=== PATIENT | male | born 1945 | race Caucasian/White ===

== ENCOUNTER 2016-07-04 14:47 | Emergency (ER) | payer OTHER, MEDICARE ==
[~2016-07-04 14:47] MED LIST: ALBUTEROL0.09 MG/A1 INH; ALBUTEROL2.5 MG/3 M INH/SOL; ANTIVERT 12.512.5 MG PO; ANTIVERT12.5 M1 PO; ANTIVERT25 MG PO; CLONAZEPAM0.5 M2 PO; CLONAZEPAM0.5 MG PO; CLONAZEPAM1 M2 PO; FLEXERIL10 MG PO; FLOMAX0.4 M1 PO; FOSAMAX70 M1 PO; GUAIFENESIN ER600 MG PO; LASIX20 M1 PO; LIORESAL 10MG T10 MG PO; MASOPHEN500 MG PO; MEDROL DOSEPAK1 PAC PO; MEDROL4 M2 PO; MUCINEX ER600 MG PO; NAPROSYN375 MG PO; OXYCODONE-ACET1 EAC1 PO; OXYCODONE-ACETAMINOP PO; PEPCID20 MG PO; PERCOCET 10-321 EACH PO; PERCOCET 325 MG1 TA2 PO; PREDNISONE10 M2 PO; PRILOSEC 20MG C20 MG PO; PROAIR HFA8.5 GM INH; PYRIDIUM100 MG PO; REGLAN10 MG PO; ROBITUSSIN COU237 ML PO; SYMBICORT 160/41 PUF INH; SYMBICORT 16010.2 GM INH; TERBINAFINE HY250 MG PO; TESSALON PERLE100 MG PO; TRAMADOL50 MG PO; TRIAMCINOL0.1 %/453 TOP; VITAMIN D250000 UNIT PO; WELLBUTRIN 100100 MG PO; ZANTAC300 MG PO; ZITHROMAX Z-PA250 M1 PO; ZITHROMAX250 M2 PO
--- NOTE | 2016-07-04 15:29 | ED DYSPNEA/ASTHMA COMPLAINT ---
History of Present Illness General Chief Complaint: Dyspnea (COPD, CHF, Other) Stated Complaint: BIBA DIFF BREATHING Source: patient Exam Limitations: no limitations Vital Signs & Intake/Output Vital Signs & Intake/Output Vital Signs Date Time Temp Pulse Resp B/P Pulse O2 O2 Flow FiO2 Ox Delivery Rate 07/04 1455 97 Room Air 07/04 1448 97.9 90 20 179/90 97 Room Air Allergies Coded Allergies: Iodinated Contrast Media - Oral and (IODINATED CONTRAST MEDIA - IV DYE) (MAKES ME SICK FOR DAYS PER PT 06/06/16) hydromorphone (Mild, DIZZINESS AND ITCHINESS 06/06/16) Reconcile Medications Acetaminophen (Masophen) 500 MG TABLET 1 TAB PO PRN PAIN (Reported) Albuterol Sulfate 2.5 MG/3 ML VIAL.NEB 1 Vial INH/CALDERON PRN COPD (Reported) Albuterol Sulfate (Albuterol Sulfate Hfa) 90 MCG HFA.AER.AD 2 PUFF INH Q4-6 PRN PRN SHORTNESS OF BREATH 90 MCG PER PUFF Alendronate Sodium (Fosamax) 70 MG TABLET 1 TAB PO QMON OSTEOPOROSIS ( Reported) in the morning, at least 30 minutes before the first food, beverage, or medication of the day Budesonide/Formoterol Fumarate (Symbicort 160-4.5 Mcg Inhaler) 10.2 GM HFA.AER.AD 2 PUF INH BID COPD/EMPHYSEMA (Reported) Clonazepam 0.5 MG TABLET 2 TAB PO DAILY ANXIETY (Reported) ERGOCALCIFEROL (VITAMIN D2) (Vitamin D2) 50,000 UNIT CAPSULE 50,000 IU PO Q30D VITAMIN D SUPPLEMENT (Reported) Furosemide (Lasix) 20 MG TABLET 1 TAB PO DAILY PRN LEG EDEMA OXYCODONE HCL/ACETAMINOPHEN (Oxycodone-Acetaminophen 10-325) 10 MG-325 MG TABLET 1 TAB PO 4 TIMES/DAY PRN PAIN (Reported) Ranitidine Hydrochloride (Zantac 300) 300 MG TAB 1 TAB PO DAILY ACID REFLUX ( Reported) TAMSULOSIN HCL (Tamsulosin Hydrochloride) 0.4 MG CAP.ER.24H 1 TAB PO DAILY PROSTATE HEALTH (Reported) Triage Note: PT BIBA FROM HOME WITH INCREASED DIFFICULTY BREATHING. PT STATES THAT HE HAS BEEN CONGESTED, STUFFY NOSE, SNEEZING, RUNNY NOSE FOR THE PAST FEW DAYS. STATES PRODUCING WHITE MUCUS. PT STATES THAT HE WENT TO [facility] FOR SAME LAST WEEK AND TOLD HE HAS A STOMACH VIRUS. PT REPORTS STILL NOT FEELING ANY BETTER. RA SAT 97% AT THIS TIME. PT STATES THAT HE HAS PAIN TO HIS RIBS WITH DEEP INSPIRATION. DENIES ANY CP AT THIS TIME. STATES THAT HE HAD TO USE HIS INHALER X3 TODAY. Triage Nurses Notes Reviewed? yes HPI: pt presents for evaluation of difficulty breathing with cough productive of a mild white phlegm that began a few days ago. Patient states that when he coughs he gets a severe sharp central chest pain that resolves when not coughing. He states he's also been blowing his nose almost nonstop since about 12:00 this afternoon. No fever or diaphoresis. Patient states that his roommate is currently ill because he goes hiking all the time. He has chronic left ankle swelling that has not changed recently. There has been no associated weight gain. Patient has a past medical history of pneumonia and he is concerned that he is developing another episode. Past History Travel History Traveled to [place] past 21 day No Medical History Any Pertinent Medical History? 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 No Review of Systems Review of Systems Constitutional: Reports: no symptoms. EENTM: Reports: no symptoms. Respiratory: Reports: see HPI. Cardiovascular: Reports: no symptoms. GI: Reports: no symptoms. Genitourinary: Reports: no symptoms. Musculoskeletal: Reports: no symptoms. Skin: Reports: no symptoms. Neurological/Psychological: Reports: no symptoms. Hematologic/Endocrine: Reports: no symptoms. Immunologic/Allergic: Reports: no symptoms. All Other Systems: Reviewed and Negative Physical Exam Physical Exam Respiratory: see below Comments: Gen.: Well-nourished, well-developed, no acute respiratory distress. Conversant. Head: Normocephalic, atraumatic. Eyes: Normal inspection bilaterally Ears: Normal inspection bilaterally Nose: Normal inspection Throat/mouth : Moist mucosa Neck: Supple, full range of motion, no goiter Heart: Regular rate and rhythm, no murmurs rubs or gallops Lungs: Clear to auscultation bilaterally with normal air entry Chest: Nontender Back: Normal range of motion Abdomen: Soft, nontender, nondistended, normal bowel sounds Extremities: Normal range of motion grossly, equal radial pulses, no cyanosis clubbing or edema Neurologic: Cranial nerves grossly intact, speech is clear Skin: warm and dry Psychiatric: Calm, cooperative, no apparent delusions or hallucinations Core Measures ACS in differential dx? No Severe Sepsis Present: No Septic Shock Present: No Progress Differential Diagnosis: bronchitis, CHF, COPD, pneumonia Plan of Care: Orders Procedure Date/time Status XRY-CHEST XRAY, PA AND LATERAL 07/04 1507 Active Diagnostic Imaging: Discussed w/RAD: Radiology Read. CXR Impression: PATIENT: OG PATEL PRESENT AGE: 71 PATIENT ACCOUNT NO: [id number] : 43 LOCATION: [facility] ORDERING PHYSICIAN: JERRICA GREEN MD SERVICE DATE: 07/04/16 EXAM TYPE: RAD - XRY-CHEST XRAY, PA AND LATERAL EXAMINATION: XR CHEST CLINICAL INFORMATION: Cough, bronchitis COMPARISON: 06/06/2016 chest x-ray TECHNIQUE: PA and lateral views of the chest were obtained. FINDINGS: The cardiac size is normal. The mediastinal silhouette is within normal limits. Tortuous thoracic aorta with atherosclerotic calcifications of aortic arch seen. The pulmonary vascularity is normal. There is linear density at the left lung base, adjacent to the left costophrenic angle which is similar to prior exam, and likely represents atelectatic changes and/or scar. The lungs are otherwise clear. No pleural effusions or pneumothorax. The visualized bony thorax is unremarkable. IMPRESSION: Left lower lobe linear pulmonary opacities, similar to prior exam and could represent scar and /or atelectasis. DICTATED BY: CHAU GRIFFIN MD DATE/TIME DICTATED:07/04/161603 BOX TRUCK WASHER:RJ DATE/TIME TRANSCRIBED:07/04/161603 CONFIDENTIAL, DO NOT COPY WITHOUT APPROPRIATE AUTHORIZATION. <Electronically signed in Other Vendor System> SIGNED BY: CHAU GRIFFIN MD 07/04/16 1611 Initial ED EKG: none Comments: 07/04/2016 4:27:39 PM I have updated the area on his test results. In addition to the pneumonia he is extremely concerned as to why he suddenly lost all of his teeth. He states he will be seeing a dentist shortly in order to pull out all his teeth and that he will be going for denture fitting. Patient's dentition is extremely poor but there seems to be no acute dental emergency present at this time. Departure Departure Disposition: HOME OR SELF CARE Condition: Stable Clinical Impression Primary Impression: Emphysema of lung Qualifiers: Emphysema type: unspecified Qualified Code: J43.9 - Emphysema, unspecified Secondary Impressions: Periodontal disease Referrals: GOLD SMITH MD (PCP/Family) Additional Instructions: Continue your current medications. Follow-up with your primary care doctor for reevaluation this week. Follow through with your dental visits as scheduled. Return if any concerns or sudden worsening. Departure Forms: Customer Survey General Discharge Information Critical Care Note Critical Care Note Critical Care Time: non-applicable
--- NOTE | 2016-07-04 16:11 | RADIOLOGY REPORT ---
EXAMINATION: XR CHEST CLINICAL INFORMATION: Cough, bronchitis COMPARISON: 06/06/2016 chest x-ray TECHNIQUE: PA and lateral views of the chest were obtained. FINDINGS: The cardiac size is normal. The mediastinal silhouette is within normal limits. Tortuous thoracic aorta with atherosclerotic calcifications of aortic arch seen. The pulmonary vascularity is normal. There is linear density at the left lung base, adjacent to the left costophrenic angle which is similar to prior exam, and likely represents atelectatic changes and/or scar. The lungs are otherwise clear. No pleural effusions or pneumothorax. The visualized bony thorax is unremarkable. IMPRESSION: Left lower lobe linear pulmonary opacities, similar to prior exam and could represent scar and /or atelectasis.
[2016-07-04 16:50] VITALS: BP 133/92
== END 2016-07-04 16:50 ==
LOC: ERH 14:47
DX: J43.9 Emphysema, unspecified (principal); K05.6 Periodontal disease, unspecified; Z87.891 Personal history of nicotine dependence

== ENCOUNTER 2016-08-31 11:00 | Emergency (ER) | payer OTHER, MEDICARE ==
[~2016-08-31] VITALS: Ht 174 cm; Wt 76.2 kg
[2016-08-31 11:13] VITALS: BP 180/105
--- NOTE | 2016-08-31 11:14 | ED DYSPNEA/ASTHMA COMPLAINT ---
History of Present Illness General Chief Complaint: General Adult Stated Complaint: WEAKNESS Source: patient Exam Limitations: no limitations Vital Signs & Intake/Output Vital Signs & Intake/Output Vital Signs Date Time Temp Pulse Resp B/P Pulse O2 O2 Flow FiO2 Ox Delivery Rate 08/31 1145 94 08/31 1113 97.2 78 18 180/105 96 Allergies Coded Allergies: Iodinated Contrast Media - Oral and (IODINATED CONTRAST MEDIA - IV DYE) (MAKES ME SICK FOR DAYS PER PT 06/06/16) hydromorphone (Mild, DIZZINESS AND ITCHINESS 06/06/16) Reconcile Medications Acetaminophen (Masophen) 500 MG TABLET 1 TAB PO PRN PAIN (Reported) Albuterol Sulfate 2.5 MG/3 ML VIAL.NEB 1 Vial INH/CALDERON PRN COPD (Reported) Albuterol Sulfate (Albuterol Sulfate Hfa) 90 MCG HFA.AER.AD 2 PUFF INH Q4-6 PRN PRN SHORTNESS OF BREATH 90 MCG PER PUFF Alendronate Sodium (Fosamax) 70 MG TABLET 1 TAB PO QMON OSTEOPOROSIS ( Reported) in the morning, at least 30 minutes before the first food, beverage, or medication of the day Budesonide/Formoterol Fumarate (Symbicort 160-4.5 Mcg Inhaler) 10.2 GM HFA.AER.AD 2 PUF INH BID COPD/EMPHYSEMA (Reported) Clonazepam 0.5 MG TABLET 2 TAB PO DAILY ANXIETY (Reported) ERGOCALCIFEROL (VITAMIN D2) (Vitamin D2) 50,000 UNIT CAPSULE 50,000 IU PO Q30D VITAMIN D SUPPLEMENT (Reported) OXYCODONE HCL/ACETAMINOPHEN (Oxycodone-Acetaminophen 10-325) 10 MG-325 MG TABLET 1 TAB PO 4 TIMES/DAY PRN PAIN (Reported) Ranitidine Hydrochloride (Zantac 300) 300 MG TAB 1 TAB PO DAILY ACID REFLUX ( Reported) TAMSULOSIN HCL (Tamsulosin Hydrochloride) 0.4 MG CAP.ER.24H 1 TAB PO DAILY PROSTATE HEALTH (Reported) Triage Nurses Notes Reviewed? yes Onset: Gradual Duration: constant Timing: remote history Severity: moderate Prior Episodes/Possible Cause: chronic episodes HPI: Patient is a 71-year-old male with a past medical history of COPD former smoker who presents emergency room brought in by ambulance for concerns of persistent shortness of breath unrelieved with multiple episodes of inhaler treatments at home and persistent body shaking episodes. Patient denies any fevers chills, COUGH,chest pain and arm pain jaw pain nausea vomiting hemoptysis leg swelling Patient has been evaluated at [facility] emergency room on multiple occasions for similar symptoms (GUILLERMO HARTMAN) Past History Medical History Any Pertinent Medical History? 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 No (GUILLERMO HARTMAN) Review of Systems Review of Systems Constitutional: Reports: no symptoms. EENTM: Reports: no symptoms. Respiratory: Reports: see HPI, cough, short of breath. Cardiovascular: Reports: no symptoms. GI: Reports: no symptoms. Genitourinary: Reports: no symptoms. Musculoskeletal: Reports: no symptoms. Skin: Reports: no symptoms. Neurological/Psychological: Reports: no symptoms. Hematologic/Endocrine: Reports: no symptoms. Immunologic/Allergic: Reports: no symptoms. All Other Systems: Reviewed and Negative (GUILLERMO HARTMAN) Physical Exam Physical Exam General Appearance: no apparent distress, alert, comfortable Respiratory: normal breath sounds, chest non-tender, no respiratory distress Comments: Well-developed well-nourished person in no acute distress HEENT: Normal EENT exam, extraocular motion intact, no nystagmus. Pupils equally round and reactive to light and accommodation. Nose is atraumatic. External auditory canal and Tympanic membranes clear. Pharynx normal. No swelling or edema. Neck: Supple, no lymphadenopathy, normal range of motion without pain or tenderness Back: Nontender, no CVA tenderness. Cardiovascular: Regular rate and rhythms no murmurs rubs or gallops, normal JVP Respiratory: Chest nontender. No respiratory distress.breath sounds clear to auscultation bilaterally Abdomen: Soft, nontender nondistended, no appreciable organomegaly. Normal bowel sounds. No ascites Extremity: No edema, no calf tenderness to palpation, normal and equal pulses. Neuro: Alert oriented x3, motor sensory normal, Skin: No appreciable rash on exposed skin, skin is warm and dry. Psych: Mood and affect is normal, memory and judgment is normal. Core Measures ACS in differential dx? Yes Severe Sepsis Present: No Septic Shock Present: No (GUILLERMO HARTMAN) Progress Differential Diagnosis: asthma, AMI, bronchitis, costochondritis, CHF, COPD, musculoskeletal pain, pericarditis, pulmonary embolism, pneumonia, pneumothorax, unstable angina Plan of Care: Orders Procedure Date/time Status TROPONIN LEVEL 08/31 1108 Complete COMPREHENSIVE METABOLIC PANEL 08/31 1108 Complete CBC WITHOUT DIFFERENTIAL 08/31 1108 Complete Laboratory Tests 08/31/16 1122: Anion Gap 10, Estimated GFR > 60, BUN/Creatinine Ratio 10.0, Glucose 93, Calcium 10.0, Total Bilirubin 1.0, AST 22, ALT 29, Alkaline Phosphatase 68, Troponin I < 0.01, Total Protein 6.8, Albumin 3.9, Globulin 2.9, Albumin/Globulin Ratio 1.3, CBC w Diff NO MAN DIFF REQ, RBC 5.06, MCV 89.9, MCH 29.4, RDW 13.8, MPV 9.0, Gran % 66.4, Lymphocytes % 23.4, Monocytes % 7.8, Eosinophils % 2.1, Basophils % 0.3, Absolute Granulocytes 4.4, Absolute Lymphocytes 1.6, Absolute Monocytes 0.5 , Absolute Eosinophils 0.1, Absolute Basophils 0, PUBS MCHC 32.7 L Patient currently looks well no apparent distress clear lungs auscultation 95% room air My suspicion of pulmonary embolism is low Patient denies any chest pain Respiratory therapist provided patient with nebulizer treatment and states that lungs were clear Patient currently resting comfortably eating a meal Patient does state that he has not been eating much over the past few days. I strongly encouraged patient to begin eating a well healthy balanced diet Upon discharge patient looks well no apparent distress and will comply with discharge instructions and had no questions (GUILLERMO HARTMAN) Diagnostic Imaging: Viewed by Me: Radiology Read. CXR Impression: no acute abnormality, no infiltrates Initial ED EKG: none Comments: PATIENT: OG PATEL PRESENT AGE: 71 PATIENT ACCOUNT NO: [id number] : 43 LOCATION: [facility] ORDERING PHYSICIAN: GUILLERMO DELANEY SERVICE DATE: 08/31/16-2718 EXAM TYPE: RAD - XRY-PORTABLE CHEST XRAY EXAMINATION: CHEST 1 VIEW CLINICAL INFORMATION: Shortness of breath. COMPARISON: 07/04/2016. TECHNIQUE: An AP view of the chest is provided. FINDINGS: The cardiac silhouette is not enlarged. The mediastinal and hilar contours are unremarkable. There are neither pleural effusions nor pneumothoraces. There are no consolidations. The osseous structures are unremarkable. IMPRESSION: No evidence for acute disease. (GUILLERMO HARTMAN) Departure Departure Disposition: HOME OR SELF CARE Condition: Stable Clinical Impression Primary Impression: Shortness of breath Secondary Impressions: COPD (chronic obstructive pulmonary disease) Referrals: GOLD SMITH MD (PCP/Family) Additional Instructions: As discussed continue home medications as directed. Follow-up with your, care doctor if no better in 2 days. If symptoms worsen return to emergency room. Begin eating and drinking a well healthy balanced diet and plenty of water for hydration Departure Forms: Customer Survey General Discharge Information (GUILLERMO HARTMAN) PA/LOGISTICS TECH Co-Sign Statement Statement: ED Attending supervision documentation- x I saw and evaluated the patient. I have also reviewed all the pertinent lab results and diagnostic results. I agree with the findings and the plan of care as documented in the PA's/LOGISTICS TECH's documentation. [] I have reviewed the ED Record and agree with the PA's/LOGISTICS TECH's documentation. [] Additions or exceptions (if any) to the PAs/LOGISTICS TECH's note and plan are summarized below: [] (ELLEN CHAPPELL,RYAN) Critical Care Note Critical Care Note Critical Care Time: non-applicable (GUILLERMO HARTMAN)
--- NOTE | 2016-08-31 11:41 | RADIOLOGY REPORT ---
EXAMINATION: CHEST 1 VIEW CLINICAL INFORMATION: Shortness of breath. COMPARISON: 07/04/2016. TECHNIQUE: An AP view of the chest is provided. FINDINGS: The cardiac silhouette is not enlarged. The mediastinal and hilar contours are unremarkable. There are neither pleural effusions nor pneumothoraces. There are no consolidations. The osseous structures are unremarkable. IMPRESSION: No evidence for acute disease.
[2016-08-31 11:50] LABS: ABSOLUTE BASOPHIL COUNT 0 /CUMM (0.0-0.2); ABSOLUTE EOSINOPHIL COUNT 0.1 /CUMM (0.0-0.7); ABSOLUTE GRANULOCYTE CT 4.4 /CUMM (1.4-6.5); ABSOLUTE LYMPH COUNT 1.6 /CUMM (1.2-3.4); ABSOLUTE MONOCYTE COUNT 0.5 /CUMM (0.10-0.60); BASOPHIL % 0.3 % (0.0-2.0); EOSINOPHIL % 2.1 % (0-5); GRANULOCYTE % 66.4 % (42.2-75.2); HEMATOCRIT 45.5 % (42-52); MEAN CORPUSCULAR HGB 29.4 PG (27.0-31.0); MEAN CORPUSCULAR HGB CONC 32.7 G/DL (33.0-37.0); MEAN CORPUSCULAR VOLUME 89.9 FL (80.0-94.0); PLATELET COUNT 219 /CUMM (130-400); RBC DISTRIBUTION WIDTH 13.8 % (11.5-14.5); RED BLOOD CELL CT 5.06 /CUMM (4.70-6.10); WHITE BLOOD CELL COUNT 6.6 /CUMM (4.8-10.8)
== END 2016-08-31 12:31 ==
LOC: ERH 11:00
PROVIDERS: Physician Assistant
DX: J44.9 Chronic obstructive pulmonary disease, unspecified (principal); Z87.891 Personal history of nicotine dependence
CPT/HCPCS: 1263

== ENCOUNTER 2016-09-20 12:28 | Emergency (ER) | payer OTHER, MEDICARE ==
[~2016-09-20] VITALS: Ht 172.7 cm; Wt 65.3 kg
[2016-09-20] MEDS ORDERED: VENTOLIN HFA18 GM INH (14:09)
[2016-09-20] MEDS ORDERED: AMOX-CLAV 875-1 EACH PO (14:14)
--- NOTE | 2016-09-20 14:34 | ED DYSPNEA/ASTHMA COMPLAINT ---
History of Present Illness General Chief Complaint: Sore Throat, Dental Pain Stated Complaint: TEETH PULLED 09/17,JAW/BODY PAIN,UNABLE TO SLEEP Source: patient Exam Limitations: no limitations Vital Signs & Intake/Output Vital Signs & Intake/Output Vital Signs Date Time Temp Pulse Resp B/P Pulse O2 O2 Flow FiO2 Ox Delivery Rate 09/20 1618 98.6 87 18 167/92 94 Room Air 09/20 1242 98.6 72 18 171/90 94 Room Air Allergies Coded Allergies: Iodinated Contrast Media - Oral and (IODINATED CONTRAST MEDIA - IV DYE) (MAKES ME SICK FOR DAYS PER PT 06/06/16) hydromorphone (Mild, DIZZINESS AND ITCHINESS 06/06/16) Reconcile Medications Acetaminophen (Masophen) 500 MG TABLET 1 TAB PO PRN PAIN (Reported) Albuterol Sulfate 2.5 MG/3 ML VIAL.NEB 1 Vial INH/CALDERON PRN COPD (Reported) Albuterol Sulfate (Ventolin Hfa) 90 MCG HFA.AER.AD 2 PUF INH Q4-6 PRN PRN SHORTNESS OF BREATH (Reported) Amoxicillin/Clavulanate Potass (Amox-Clav 875-125 MG Tablet) 875 MG-125 MG TABLET 1 TAB PO BID ANTIBIOTIC, INFECTION (Reported) Budesonide/Formoterol Fumarate (Symbicort 160-4.5 Mcg Inhaler) 10.2 GM HFA.AER.AD 2 PUF INH BID COPD/EMPHYSEMA (Reported) Clonazepam 0.5 MG TABLET 2 TAB PO DAILY ANXIETY (Reported) Oxycodone HCl/Acetaminophen (Oxycodone-Acetaminophen 10-325) 10 MG-325 MG TABLET 1 TAB PO 4XDP PRN PAIN (Reported) Ranitidine HCl (Zantac) 300 MG TABLET 1 TAB PO DAILY ACID REFLUX (Reported) Tamsulosin HCl (Flomax) 0.4 MG CAP.ER.24H 1 CAP PO DAILY PROSTATE (Reported) Triage Note: PT HAD LAST OF TEETH PULLED OUT ON TUESDAY. PT STATES PAIN IN JAW IS NOT RELIEVED WITH PERCOCET, LAST TOOK AT 11 AM. Triage Nurses Notes Reviewed? yes HPI: This patient is a 71-year-old male who presented to the emergency department today for evaluation of multiple complaints. The patient reported that on 09/17 he had his teeth pulled. He reported that he has pulled out 2 of the sutures that were placed in his gingiva. He reported that there is a suture tail that is bothering him and would like it to be cut out. The patient also is complaining of pain to the left side of his face status post dental surgery. He reported that Percocet is not helping him and he would like something stronger. He reported that the pain is a 10 out of 10, throbbing, and nonradiating. The patient also reported that it is difficult for him to lay down at night as it causes him to feel short of breath. The patient has been sitting up in a chair. He reported lower extremity edema which resolved with elevation. No known history of CHF. He is not taking any diuretics. This patient does not have a software sales representative. The patient denied any chest pain, difficulty breathing currently , fevers, chills, abdominal pain, nausea, or vomiting. No numbness or tingling in his extremities. No visual changes. (KULDEEP DILLARD PA-C) Past History Travel History Traveled to [place] past 21 day No Medical History Any Pertinent Medical History? 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 No (KULDEPE DILLARD PA-C) Review of Systems Review of Systems Constitutional: Reports: no symptoms. EENTM: Reports: see HPI. Respiratory: Reports: see HPI. Cardiovascular: Reports: see HPI. GI: Reports: no symptoms. Genitourinary: Reports: no symptoms. Musculoskeletal: Reports: no symptoms. Skin: Reports: no symptoms. Neurological/Psychological: Reports: no symptoms. All Other Systems: Reviewed and Negative (KULDEEP DILLARD PA-C) Physical Exam Physical Exam Respiratory: normal breath sounds, chest non-tender, no respiratory distress, no wheezes, rales, or rhonchi Comments: Well-developed well-nourished person in no acute distress HEENT: Normal EENT exam, head normocephalic, moist mucous membranes, sutures in place to the gingiva with no gingival edema or erythema Pupils equally round and reactive to light. No pharyngeal injection. No oral pharyngeal lesions or edema Neck: Supple, no lymphadenopathy Back: Normal gait Cardiovascular: Regular rate and rhythm with no murmurs, rubs, or gallops Abdomen: Soft, nontender, and nondistended Extremity: No edema, no calf tenderness to palpation, normal and equal pulses. Neuro: Alert oriented x3, cranial nerves II through XII grossly intact. Skin: No appreciable rash on exposed skin, skin is warm and dry. Psych: Mood and affect is normal Core Measures ACS in differential dx? Yes Severe Sepsis Present: No Septic Shock Present: No (KULDEEP DILLARD PA-C) Progress Differential Diagnosis: asthma, AMI, bronchitis, costochondritis, CHF, COPD, musculoskeletal pain, pericarditis, pulmonary embolism, pneumonia, unstable angina Plan of Care: Orders Procedure Date/time Status TROPONIN LEVEL 09/21 1427 Complete MAGNESIUM 09/20 142 Complete COMPREHENSIVE METABOLIC PANEL 09/20 142 Complete CBC WITHOUT DIFFERENTIAL 09/21 1427 Complete B-TYPE NATRIURETIC PEP (BNP) 09/20 142 Complete EKG 09/20 142 Active Laboratory Tests 09/20/16 1507: Anion Gap 6, Estimated GFR > 60, BUN/Creatinine Ratio 11.0, Glucose 81, Calcium 10.0, Magnesium 1.7, Total Bilirubin 0.8, AST 24, ALT 37, Alkaline Phosphatase 71, Troponin I < 0.01, Dhn-M-Dczsjdojzqc Pept 216 H, Total Protein 7.3, Albumin 4.2, Globulin 3.1, Albumin/Globulin Ratio 1.4, CBC w Diff NO MAN DIFF REQ, RBC 5.00, MCV 89.2, MCH 29.6, RDW 13.6, MPV 9.1, Gran % 71.4, Lymphocytes % 19.1 L, Monocytes % 7.4, Eosinophils % 1.8, Basophils % 0.3, Absolute Granulocytes 5.5, Absolute Lymphocytes 1.5, Absolute Monocytes 0.6, Absolute Eosinophils 0.1, Absolute Basophils 0, PUBS MCHC 33.1 Diagnostic Imaging: Viewed by Me: Radiology Read. Discussed w/RAD: Radiology Read. CXR Impression: PATIENT: OG PATEL PRESENT AGE: 71 PATIENT ACCOUNT NO: [id number] : 43 LOCATION: [facility] ORDERING PHYSICIAN: KULDEEP DILLARD PA-C SERVICE DATE: 09/20/16 EXAM TYPE: RAD - XRY-CHEST XRAY, PA AND LATERAL EXAMINATION: XR CHEST CLINICAL INFORMATION: Shortness of breath and chest pain. Evaluate for cardiomegaly. COMPARISON: Chest x-ray 2016. Chest x-ray 07/04/2016. TECHNIQUE: 2 views of the chest were obtained. FINDINGS: The lungs are hyperinflated without focal airspace consolidation. There is minimal scarring versus atelectasis within the bilateral lung bases. No pleural effusions or pneumothoraces are identified. Cardiomediastinal contours are within normal limits. Soft tissues are unremarkable. No acute osseous abnormality is identified. IMPRESSION: Pulmonary hyperinflation, which can be seen in the setting of underlying COPD. Otherwise, no acute pulmonary process. Cardiomediastinal contours are within normal limits. DICTATED BY: WALTER BYERS MD DATE/TIME DICTATED:09/20/161502 QA AUDITOR:RJ DATE/TIME TRANSCRIBED:09/20/161502 CONFIDENTIAL, DO NOT COPY WITHOUT APPROPRIATE AUTHORIZATION. <Electronically signed in Other Vendor System> SIGNED BY: WALTER BYERS MD 09/20/16 1509 Initial ED EKG: normal axis, normal intervals, normal sinus rhythm, no ST T wave changes, 65 bpm Comments: 09/20/2016 3:58:49 PM: No increase in troponin level. BNP not elevated. Chest x- ray unremarkable. The patient is resting comfortably on the stretcher. Stable for discharge home. He will follow up with his software sales representative as discussed as well as with his dentist. (NISHANT ROE,KULDEEP) Departure Departure Disposition: HOME OR SELF CARE Condition: Stable Clinical Impression Primary Impression: Pain, dental Referrals: GOLD SMITH MD (PCP/Family) Additional Instructions: Please follow-up with your software sales representative, Dr. Corcoran, as discussed. Please follow-up with your dentist as discussed. Rest and return for any worsening symptoms or concerns. Departure Forms: Customer Survey General Discharge Information (KULDEEP DILLARD PA-C) PA/INSTRUMENT PROCESSING TECH Co-Sign Statement Statement: ED Attending supervision documentation- [X] I saw and evaluated the patient. I have also reviewed all the pertinent lab results and diagnostic results. I agree with the findings and the plan of care as documented in the PA's/INSTRUMENT PROCESSING TECH's documentation. [] I have reviewed the ED Record and agree with the PA's/INSTRUMENT PROCESSING TECH's documentation. [] Additions or exceptions (if any) to the PAs/INSTRUMENT PROCESSING TECH's note and plan are summarized below: [] (JERRICA KENDRICK DO) Critical Care Note Critical Care Note Critical Care Time: non-applicable (NISHANT ROE,KULDEEP)
--- NOTE | 2016-09-20 15:09 | RADIOLOGY REPORT ---
EXAMINATION: XR CHEST CLINICAL INFORMATION: Shortness of breath and chest pain. Evaluate for cardiomegaly. COMPARISON: Chest x-ray 08/31/2016. Chest x-ray 07/04/2016. TECHNIQUE: 2 views of the chest were obtained. FINDINGS: The lungs are hyperinflated without focal airspace consolidation. There is minimal scarring versus atelectasis within the bilateral lung bases. No pleural effusions or pneumothoraces are identified. Cardiomediastinal contours are within normal limits. Soft tissues are unremarkable. No acute osseous abnormality is identified. IMPRESSION: Pulmonary hyperinflation, which can be seen in the setting of underlying COPD. Otherwise, no acute pulmonary process. Cardiomediastinal contours are within normal limits.
[2016-09-20 15:20] LABS: ABSOLUTE BASOPHIL COUNT 0 /CUMM (0.0-0.2); ABSOLUTE EOSINOPHIL COUNT 0.1 /CUMM (0.0-0.7); ABSOLUTE GRANULOCYTE CT 5.5 /CUMM (1.4-6.5); ABSOLUTE LYMPH COUNT 1.5 /CUMM (1.2-3.4); ABSOLUTE MONOCYTE COUNT 0.6 /CUMM (0.10-0.60); BASOPHIL % 0.3 % (0.0-2.0); EOSINOPHIL % 1.8 % (0-5); GRANULOCYTE % 71.4 % (42.2-75.2); HEMATOCRIT 44.6 % (42-52); MEAN CORPUSCULAR HGB 29.6 PG (27.0-31.0); MEAN CORPUSCULAR HGB CONC 33.1 G/DL (33.0-37.0); MEAN CORPUSCULAR VOLUME 89.2 FL (80.0-94.0); MEAN PLATELET VOLUME 9.1 FL (7.4-10.4); PLATELET COUNT 227 /CUMM (130-400); RBC DISTRIBUTION WIDTH 13.6 % (11.5-14.5); WHITE BLOOD CELL COUNT 7.8 /CUMM (4.8-10.8)
[2016-09-20 16:18] VITALS: BP 167/92
== END 2016-09-20 16:26 ==
LOC: ERH 12:28
PROVIDERS: Physician Assistant
DX: K08.89 Other specified disorders of teeth and supporting structures (principal); I10 Essential (primary) hypertension; Z72.0 Tobacco use
CPT/HCPCS: 93005; 93010

== ENCOUNTER 2016-10-10 08:12 | Emergency (ER) | payer OTHER, MEDICARE ==
[~2016-10-10] VITALS: Ht 174 cm; Wt 65.3 kg
[~2016-10-10 08:12] MED LIST changes: +AMOX-CLAV 875-1 EACH PO; +VENTOLIN HFA18 GM INH
--- NOTE | 2016-10-10 08:38 | ED DYSPNEA/ASTHMA COMPLAINT ---
History of Present Illness General Chief Complaint: Dyspnea (COPD, CHF, Other) Stated Complaint: BIBA, SOB Source: patient Exam Limitations: no limitations Vital Signs & Intake/Output Vital Signs & Intake/Output Vital Signs Date Time Temp Pulse Resp B/P B/P Pulse O2 O2 Flow FiO2 Mean Ox Delivery Rate 10/10 0820 97.0 66 20 170/81 98 Room Air Allergies Coded Allergies: Iodinated Contrast Media - Oral and (IODINATED CONTRAST MEDIA - IV DYE) (MAKES ME SICK FOR DAYS PER PT 10/10/16) hydromorphone (Mild, DIZZINESS AND ITCHINESS 10/10/16) Reconcile Medications Acetaminophen (Masophen) 500 MG TABLET 1 TAB PO PRN PAIN (Reported) Albuterol Sulfate 2.5 MG/3 ML VIAL.NEB 1 Vial INH/CALDERON PRN COPD (Reported) Albuterol Sulfate (Ventolin Hfa) 90 MCG HFA.AER.AD 2 PUF INH Q4-6 PRN PRN SHORTNESS OF BREATH (Reported) Budesonide/Formoterol Fumarate (Symbicort 160-4.5 Mcg Inhaler) 10.2 GM HFA.AER.AD 2 PUF INH BID COPD/EMPHYSEMA (Reported) Clonazepam 0.5 MG TABLET 2 TAB PO DAILY ANXIETY (Reported) Oxycodone HCl/Acetaminophen (Oxycodone-Acetaminophen 10-325) 10 MG-325 MG TABLET 1 TAB PO 4XDP PRN PAIN (Reported) Ranitidine HCl (Zantac) 300 MG TABLET 1 TAB PO DAILY ACID REFLUX (Reported) Tamsulosin HCl (Flomax) 0.4 MG CAP.ER.24H 1 CAP PO DAILY PROSTATE (Reported) Triage Note: PT BIBA FROM HOME TO [facility] RM 2 C/C DIFF BREATHING X COUPLE HOURS. PT STATES R/T HIS [employer] HAVING SHUT THE HEAT OFF 5 DAYS AGO. STATES HAS BEEN USING HIS INHALERS BUT "THEY'RE NOT WORKING THE WAY THEY'RE SUPPOSED TO". R/A SATS 98%, SPEAKING IN COMPLETE SENTENCES, NO RESPIRATORY DISTRESS NOTED. COMPLAINS ALSO OF CHRONIC INTERMITTENT C/P X YEARS, CURRENTLY RATES SAME 09/27. EKG BEING DONE AT PRESENT. DR GREEN INTO EVALUATE PATIENT ON ARRIVAL TO ER. Triage Nurses Notes Reviewed? yes Onset: Gradual Duration: hour(s):, continues in ED, intermittent Severity: moderate Activities at Onset: rest Prior Episodes/Possible Cause: frequent episodes Modifying Factors: Worsens With: other (with exertion). HPI: Patient presents for evaluation of moderate to severe intermittent shortness of breath that began gradually overnight. Patient has been taking his metered-dose inhaler without improvement. Although he denies fever he states he has felt chilled (his landlord shut his heat off 5 days ago) along with sneezing and nasal congestion. Patient states is also having a left-sided intermittent aching chest pain daily. The pain worsens with deep inspiration. Patient denies cough. He denies leg swelling. He denies cigarette smoking, having quit "a long time ago". In addition he is also experiencing a headache in the back of the head that he has experienced off and on since he fell 2 months ago. Past History Travel History Traveled to [place] past 21 day No Medical History Any Pertinent Medical History? 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 No Review of Systems Review of Systems Constitutional: Reports: no symptoms. EENTM: Reports: no symptoms. Respiratory: Reports: see HPI. Cardiovascular: Reports: no symptoms. GI: Reports: no symptoms. Genitourinary: Reports: no symptoms. Musculoskeletal: Reports: no symptoms. Skin: Reports: no symptoms. Neurological/Psychological: Reports: headache. Hematologic/Endocrine: Reports: no symptoms. Immunologic/Allergic: Reports: no symptoms. All Other Systems: Reviewed and Negative Physical Exam Physical Exam Respiratory: see below Comments: Gen.: Well-nourished, well-developed, no apparent respiratory distress. Conversant. Head: Normocephalic, atraumatic. Eyes: Normal inspection bilaterally Ears: Normal inspection bilaterally Nose: Normal inspection Throat/mouth : Moist mucosa Neck: Supple, full range of motion, no goiter Heart: Regular rate and rhythm, no murmurs rubs or gallops Lungs: Diminished breath sounds bilaterally but otherwise fair to good air entry and no wheezes rales or rhonchi Chest: Nontender Back: Normal range of motion Abdomen: Soft, nontender, nondistended, normal bowel sounds Extremities: Normal range of motion grossly, equal radial pulses, no cyanosis clubbing or edema, calves nontender Neurologic: Cranial nerves grossly intact, speech is clear Skin: warm and dry Psychiatric: Calm, cooperative, no apparent delusions or hallucinations Core Measures ACS in differential dx? No Severe Sepsis Present: No Septic Shock Present: No Progress Differential Diagnosis: bronchitis, CHF, COPD, pneumonia, pneumothorax Plan of Care: Orders Procedure Date/time Status AEROSOL (GEN) 10/10 0900 Complete EKG 10/10 0814 Active Initial ED EKG: NSR, rate (68) Prior EKG: unchanged Comments: 10/10/2016 9:55:49 AM Andrea appears more comfortable and he is quite conversant at this time. Auscultation of the lungs reveals improved air entry and no wheezes rales or rhonchi. He subsequently ambulated to the bathroom without difficulty. He has an albuterol and Symbicort inhaler as well as be adequate for treatment of his lung disease. I feel he is stable for outpatient management, I do not feel he needs oral steroids or antibiotics at this time. Departure Departure Disposition: HOME OR SELF CARE Condition: Stable Clinical Impression Primary Impression: COPD (chronic obstructive pulmonary disease) Qualifiers: COPD type: COPD with acute exacerbation Qualified Code: J44.1 - Chronic obstructive pulmonary disease with (acute) exacerbation Referrals: GOLD SMITH MD (PCP/Family) Additional Instructions: Continue your inhalers as discussed. Follow up with your primary care physician within 48 hours for reevaluation. Return if any concerns or sudden worsening. Departure Forms: Customer Survey General Discharge Information Critical Care Note Critical Care Note Critical Care Time: non-applicable
[2016-10-10 10:10] VITALS: BP 153/85
== END 2016-10-10 10:11 ==
LOC: ERH 08:12
DX: J44.9 Chronic obstructive pulmonary disease, unspecified (principal); Z87.891 Personal history of nicotine dependence; R51 Headache
CPT/HCPCS: 1263; 93005; 93010; J1885

== ENCOUNTER 2016-10-12 09:17 | Emergency (ER) | payer OTHER, MEDICARE ==
[~2016-10-12] VITALS: Ht 174 cm; Wt 65.3 kg
--- NOTE | 2016-10-12 10:58 | ED DYSPNEA/ASTHMA COMPLAINT ---
History of Present Illness General Chief Complaint: Upper Respiratory Sx/Fever Stated Complaint: C/O COUGH SEEN FOR SAME SAT Source: patient, old records Exam Limitations: no limitations Vital Signs & Intake/Output Vital Signs & Intake/Output Vital Signs Date Time Temp Pulse Resp B/P B/P Pulse O2 O2 Flow FiO2 Mean Ox Delivery Rate 10/12 1130 95 10/12 0926 99.0 67 18 164/90 96 Room Air Allergies Coded Allergies: Iodinated Contrast Media - Oral and (IODINATED CONTRAST MEDIA - IV DYE) (MAKES ME SICK FOR DAYS PER PT 10/10/16) hydromorphone (Mild, DIZZINESS AND ITCHINESS 10/10/16) Reconcile Medications Acetaminophen (Masophen) 500 MG TABLET 1 TAB PO PRN PAIN (Reported) Albuterol Sulfate 2.5 MG/3 ML VIAL.NEB 1 Vial INH/CALDERON PRN COPD (Reported) Albuterol Sulfate (Ventolin Hfa) 90 MCG HFA.AER.AD 2 PUF INH Q4-6 PRN PRN SHORTNESS OF BREATH (Reported) Budesonide/Formoterol Fumarate (Symbicort 160-4.5 Mcg Inhaler) 10.2 GM HFA.AER.AD 2 PUF INH BID COPD/EMPHYSEMA (Reported) Clonazepam 0.5 MG TABLET 2 TAB PO DAILY ANXIETY (Reported) Oxycodone HCl/Acetaminophen (Oxycodone-Acetaminophen 10-325) 10 MG-325 MG TABLET 1 TAB PO 4XDP PRN PAIN (Reported) Prednisone 20 MG TABLET 3 TAB PO DAILY ASTHMA Ranitidine HCl (Zantac) 300 MG TABLET 1 TAB PO DAILY ACID REFLUX (Reported) Tamsulosin HCl (Flomax) 0.4 MG CAP.ER.24H 1 CAP PO DAILY PROSTATE (Reported) Triage Note: PT STATES HE CAN'T BREATH AND SHAKING "TO THE MAX" PT STATES UPSET WITH [employer] FOR NOT DROPPING OFF A HEATER THAT IS NOT BIG ENOUGH TO HEAT HIS APPARTMENT. Triage Nurses Notes Reviewed? yes HPI: Patient presents for evaluation of dyspnea that began over the weekend. He was evaluated on Tuesday and the [facility] emergency department and treated with a nebulizer. Today he states his breathing has gotten worse again along with a nonproductive cough. He states that this is certainly due to the fact that his landlord has turned his heat off. He has now contacted a court professional services manager regarding this. He denies fever or cold symptoms or leg swelling. He states that he can't lie flat because it affects his breathing. He has been taking his metered dose inhalers without improvement. Past History Travel History Traveled to [place] past 21 day No Medical History Any Pertinent Medical History? 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 No Review of Systems Review of Systems Constitutional: Reports: no symptoms. EENTM: Reports: no symptoms. Respiratory: Reports: see HPI. Cardiovascular: Reports: no symptoms. GI: Reports: no symptoms. Genitourinary: Reports: no symptoms. Musculoskeletal: Reports: no symptoms. Skin: Reports: no symptoms. Neurological/Psychological: Reports: no symptoms. Hematologic/Endocrine: Reports: no symptoms. Immunologic/Allergic: Reports: no symptoms. All Other Systems: Reviewed and Negative Physical Exam Physical Exam Respiratory: SEE BELOW Comments: Gen.: Well-nourished, well-developed, no acute respiratory distress. Conversant and cooperative. Head: Normocephalic, atraumatic. Eyes: Normal inspection bilaterally Ears: Normal inspection bilaterally Nose: Normal inspection Throat/mouth : Moist mucosa Neck: Supple, full range of motion, no goiter Heart: Regular rate and rhythm, no murmurs rubs or gallops Lungs: Diminished breath sounds bilaterally without wheezes rales or rhonchi. Chest: Nontender Back: Normal range of motion Abdomen: Soft, nontender, nondistended, normal bowel sounds Extremities: Normal range of motion grossly, equal radial pulses, no cyanosis clubbing or edema Neurologic: Cranial nerves grossly intact, speech is clear Skin: warm and dry Psychiatric: Calm, cooperative, no apparent delusions or hallucinations Core Measures ACS in differential dx? No Severe Sepsis Present: No Septic Shock Present: No Progress Differential Diagnosis: bronchitis, CHF, COPD, pneumonia Plan of Care: Orders Procedure Date/time Status AEROSOL (GEN) 10/12 1106 Complete Initial ED EKG: none Departure Departure Disposition: HOME OR SELF CARE Condition: Stable Clinical Impression Primary Impression: Emphysema lung Qualifiers: Emphysema type: unspecified Qualified Code: J43.9 - Emphysema, unspecified Referrals: GOLD SMITH MD (PCP/Family) Additional Instructions: Redness on as prescribed. Continue your current metered-dose inhalers. Follow- up with your primary care physician or your lung specialist within the next 48 hours. Return if any concerns or sudden worsening. Thank you for choosing the [facility] Emergency Department for your care. It was a pleasure to serve you today. Tomás Gonsalves M.D. [facility] Departure Forms: Customer Survey General Discharge Information Prescriptions: Current Visit Scripts Prednisone 3 TAB PO DAILY #12 TAB Critical Care Note Critical Care Note Critical Care Time: non-applicable
[2016-10-12] MEDS ORDERED: PREDNISONE20 M1 PO (11:54)
[2016-10-12 12:02] VITALS: BP 156/78
== END 2016-10-12 12:18 ==
LOC: ERH 09:17
DX: J43.9 Emphysema, unspecified (principal); Z87.891 Personal history of nicotine dependence
CPT/HCPCS: 1263

== ENCOUNTER 2016-10-28 19:31 | Emergency (ER) | payer OTHER, MEDICARE ==
[~2016-10-28] VITALS: Ht 172.7 cm; Wt 65.3 kg
[~2016-10-28 19:31] MED LIST changes: +PREDNISONE20 M1 PO
[2016-10-28 20:15] LABS: ABSOLUTE BASOPHIL COUNT 0 /CUMM (0.0-0.2); ABSOLUTE EOSINOPHIL COUNT 0.2 /CUMM (0.0-0.7); ABSOLUTE GRANULOCYTE CT 5.5 /CUMM (1.4-6.5); ABSOLUTE MONOCYTE COUNT 0.7 /CUMM (0.10-0.60); BASOPHIL % 0.3 % (0.0-2.0); EOSINOPHIL % 2.4 % (0-5); GRANULOCYTE % 65.3 % (42.2-75.2); HEMATOCRIT 43.6 % (42-52); MEAN CORPUSCULAR HGB 29.9 PG (27.0-31.0); MEAN CORPUSCULAR HGB CONC 33.2 G/DL (33.0-37.0); MEAN PLATELET VOLUME 8.9 FL (7.4-10.4); PLATELET COUNT 218 /CUMM (130-400); RBC DISTRIBUTION WIDTH 14.1 % (11.5-14.5); RED BLOOD CELL CT 4.85 /CUMM (4.70-6.10); WHITE BLOOD CELL COUNT 8.5 /CUMM (4.8-10.8)
--- NOTE | 2016-10-28 21:12 | ED CARDIAC/CP/PALPITATIONS ---
History of Present Illness General Chief Complaint: Abdominal Pain/Flank Pain Stated Complaint: BIBA LEFT FLANK PAIN Source: patient Exam Limitations: no limitations Vital Signs & Intake/Output Vital Signs & Intake/Output Vital Signs Date Time Temp Pulse Resp B/P B/P Pulse O2 O2 Flow FiO2 Mean Ox Delivery Rate 10/28 2128 Room Air 10/29 2127 98.4 67 18 170/95 97 Room Air 10/28 1944 99.0 80 18 163/82 96 Room Air Allergies Coded Allergies: Iodinated Contrast Media - Oral and (IODINATED CONTRAST MEDIA - IV DYE) (MAKES ME SICK FOR DAYS PER PT 10/10/16) hydromorphone (Mild, DIZZINESS AND ITCHINESS 10/10/16) Reconcile Medications Acetaminophen (Masophen) 500 MG TABLET 1 TAB PO PRN PAIN (Reported) Albuterol Sulfate 2.5 MG/3 ML VIAL.NEB 1 Vial INH/CALDERON PRN COPD (Reported) Albuterol Sulfate (Ventolin Hfa) 90 MCG HFA.AER.AD 2 PUF INH Q4-6 PRN PRN SHORTNESS OF BREATH (Reported) Budesonide/Formoterol Fumarate (Symbicort 160-4.5 Mcg Inhaler) 10.2 GM HFA.AER.AD 2 PUF INH BID COPD/EMPHYSEMA (Reported) Clonazepam 0.5 MG TABLET 2 TAB PO DAILY ANXIETY (Reported) Oxycodone HCl/Acetaminophen (Oxycodone-Acetaminophen 10-325) 10 MG-325 MG TABLET 1 TAB PO 4XDP PRN PAIN (Reported) Prednisone 20 MG TABLET 3 TAB PO DAILY ASTHMA Ranitidine HCl (Zantac) 300 MG TABLET 1 TAB PO DAILY ACID REFLUX (Reported) Tamsulosin HCl (Flomax) 0.4 MG CAP.ER.24H 1 CAP PO DAILY PROSTATE (Reported) Triage Note: PT BIBA FROM HOME C/O EXACERBATION OF CHRONIC PAIN. HAS PAIN IN LEFT RIBS FOR 2 HRS. PAIN IS WORSE WITH MOVEMENT AND DEEP INSPIRATION. PAIN COMES AND GOES EVERY DAY. "WHEN IT LASTS FOR 2 HRS I WORRY ABOUT IT" TOOK PERCOCET AT 1830 WITH NO RELIEF. "MY ROOM MATE MOVED OUT LAST WEEK AND I'M GETTING EVICTED ON THE " Triage Nurses Notes Reviewed? yes Onset: Abrupt Duration: CHRONIC Quality/Severity: mild, moderate, pressure Radiation: no radiation HPI: 71-year-old male comes into emergency room for further evaluation of left-sided chest wall pain has been going on for many years. Patient reports that he's been under a lot of stress and is currently trying to be evicted out of his home. Patient went on to tell me the story about his landlord as well as been in court. There is no suicidal or homicidal ideation. After redirecting the patient he began to tell me about this chronic chest pain on the left side. It has been going on for many years. There is no changes. Denies any vomiting shortness of breath fever chills cough. Denies any other associated symptoms. (DEMI MITCHELL) Past History Travel History Traveled to [place] past 21 day No Medical History Any Pertinent Medical History? 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 No (DEMI MITCHELL) Review of Systems Review of Systems Constitutional: Reports: no symptoms. EENTM: Reports: no symptoms. Respiratory: Reports: no symptoms. Cardiovascular: Reports: see HPI. GI: Reports: no symptoms. Genitourinary: Reports: no symptoms. Musculoskeletal: Reports: see HPI. Skin: Reports: no symptoms. Neurological/Psychological: Reports: no symptoms. Hematologic/Endocrine: Reports: no symptoms. Immunologic/Allergic: Reports: no symptoms. All Other Systems: Reviewed and Negative (DEMI MITCHELL) Physical Exam Physical Exam General Appearance: well developed/nourished, no apparent distress, alert, awake Head: atraumatic, normal appearance Eyes: Bilateral: normal appearance, EOMI. Ears, Nose, Throat: normal pharynx, hearing grossly normal Neck: normal inspection, full range of motion Respiratory: normal breath sounds, no respiratory distress, chest wall tenderness Cardiovascular: regular rate/rhythm Gastrointestinal: soft Back: normal inspection Extremities: normal inspection Neurologic/Psych: awake, oriented x 3, normal gait, normal mood/affect Skin: intact, normal color Core Measures ACS in differential dx? Yes Severe Sepsis Present: No Septic Shock Present: No (MARIA TERESA DELANEY,DEMI) Progress Differential Diagnosis: AMI, aortic dissection, atrial fibrillation, cholecystitis, hyperkalemia, hypovolemia, hyperthyroid, hyperventilation, intracranial hemorrhage, musculoskeletal pain, myocarditis, pancreatitis, pericarditis, pneumonia, pneumothorax, pulmonary embolism, PUD/GERD, PVCs/PACs, respiratory failure, rib fracture, sepsis, unstable angina, V-fib/V-Tach, WPW syndrome Plan of Care: Orders Procedure Date/time Status Add-on Test (ER Only) 10/28 2110 Active EKG 10/28 2110 Active TROPONIN LEVEL 10/28 1956 Complete URINALYSIS 10/28 1952 Complete LIPASE 10/28 1952 Complete COMPREHENSIVE METABOLIC PANEL 10/28 1952 Complete CBC WITHOUT DIFFERENTIAL 10/28 1952 Complete AMYLASE 10/28 1952 Complete Laboratory Tests 10/28/162001: Urine Color YEL, Urine Clarity CLEAR, Urine pH 6.5, Ur Specific [place] 1.020, Urine Protein NEG, Urine Ketones NEG, Urine Nitrite NEG, Urine Bilirubin NEG, Urine Urobilinogen 0.2, Ur Leukocyte Esterase NEG, Ur Microscopic EXAM NOT REQUIRED, Urine Hemoglobin NEG, Urine Glucose NEG 10/28/161956: Anion Gap 9, Estimated GFR > 60, BUN/Creatinine Ratio 8.9, Glucose 86, Calcium 9.2, Total Bilirubin 0.6, AST 22, ALT 35, Alkaline Phosphatase 70, Troponin I < 0.01, Total Protein 6.5, Albumin 3.8, Globulin 2.7, Albumin/Globulin Ratio 1.4, Amylase 69, Lipase 22 L, CBC w Diff NO MAN DIFF REQ, RBC 4.85, MCV 90.0, MCH 29.9, RDW 14.1, MPV 8.9, Gran % 65.3, Lymphocytes % 23.8, Monocytes % 8.2, Eosinophils % 2.4, Basophils % 0.3, Absolute Granulocytes 5.5, Absolute Lymphocytes 2.0, Absolute Monocytes 0.7 H, Absolute Eosinophils 0.2, Absolute Basophils 0, PUBS MCHC 33.2 Initial ED EKG: normal intervals, normal p-waves, normal QRS complex, normal sinus rhythm, rate (57) (DEMI MITCHELL) Departure Departure Disposition: HOME OR SELF CARE Condition: Stable Clinical Impression Primary Impression: Chest wall pain Referrals: LUIS CHAPPELL,GOLD (PCP/Family) Additional Instructions: 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 Return if any other concerns. Please go over all results of today's visit with your primary care doctor. Contact your primary care doctor to let them know you were here in the emergency room. There may be nonspecific findings which may not be related to your visit today here in the emergency room but may require further evaluation and chronic monitoring by your primary care doctor. If you had a laceration today the chance of foreign body always remains. You should follow-up with your primary care doctor for recheck in 3-5 days for a wound check. If you had an x-ray done there is a chance that a fracture could have been missed on initial read and you should follow-up with your primary care doctor for repeat x-rays if symptoms persist. If your blood pressure was elevated here in the emergency room please have rechecked by her primary care doctor within the next 48 hours by your primary care doctor. If you were prescribed a narcotic here in the emergency room or any type of controlled substances you're not allowed to drive while taking this medication or operate any type of heavy machinery. Narcotics can make you feel lightheaded dizziness nausea and can cause constipation. You may need to parts picker a stool softener. Thank you for choosing [facility] emergency room. Please return to the emergency room immediately if you have any other concerns worsening of symptoms. Departure Forms: Customer Survey General Discharge Information Comments Chronic pain for the patient. Follow-up with primary care doctor. Case discussed with Dr. armando. Return if any other concerns. (DEMI MITCHELL) PA/KAI WHAKARURUHAU Co-Sign Statement Statement: ED Attending supervision documentation- x I saw and evaluated the patient. I have also reviewed all the pertinent lab results and diagnostic results. I agree with the findings and the plan of care as documented in the PA's/KAI WHAKARURUHAU's documentation. [] I have reviewed the ED Record and agree with the PA's/KAI WHAKARURUHAU's documentation. [] Additions or exceptions (if any) to the PAs/KAI WHAKARURUHAU's note and plan are summarized below: [] (ELLEN CHAPPELL,RYAN) Critical Care Note Critical Care Note Critical Care Time: non-applicable (MARIA TERESA DELANEY,DEMI)
[2016-10-28 21:28] VITALS: BP 170/95
== END 2016-10-28 22:26 ==
LOC: ERH 19:31
PROVIDERS: Emergency Medicine
DX: R07.89 Other chest pain (principal)
CPT/HCPCS: 81003; 93005; 93010

== ENCOUNTER 2016-11-15 17:58 | Emergency (ER) | payer OTHER, MEDICARE ==
[~2016-11-15] VITALS: Ht 172.7 cm; Wt 65.3 kg
--- NOTE | 2016-11-15 18:00 | ED DYSPNEA/ASTHMA COMPLAINT ---
History of Present Illness General Chief Complaint: Dyspnea (COPD, CHF, Other) Stated Complaint: DIFFICULTY BREATHING Source: patient Exam Limitations: no limitations Vital Signs & Intake/Output Vital Signs & Intake/Output Vital Signs Date Time Temp Pulse Resp B/P B/P Pulse O2 O2 Flow FiO2 Mean Ox Delivery Rate 11/15 1830 92 11/15 1810 98.6 71 16 166/92 93 Room Air Allergies Coded Allergies: Iodinated Contrast Media - Oral and (IODINATED CONTRAST MEDIA - IV DYE) (MAKES ME SICK FOR DAYS PER PT 11/15/16) hydromorphone (Mild, DIZZINESS AND ITCHINESS 11/15/16) Reconcile Medications Acetaminophen (Masophen) 500 MG TABLET 1 TAB PO PRN PAIN (Reported) Albuterol Sulfate 2.5 MG/3 ML VIAL.NEB 1 Vial INH/CALDERON PRN COPD (Reported) Albuterol Sulfate (Ventolin Hfa) 90 MCG HFA.AER.AD 2 PUF INH Q4-6 PRN PRN SHORTNESS OF BREATH (Reported) Budesonide/Formoterol Fumarate (Symbicort 160-4.5 Mcg Inhaler) 10.2 GM HFA.AER.AD 2 PUF INH BID COPD/EMPHYSEMA (Reported) Clonazepam 0.5 MG TABLET 2 TAB PO DAILY ANXIETY (Reported) Oxycodone HCl/Acetaminophen (Oxycodone-Acetaminophen 10-325) 10 MG-325 MG TABLET 1 TAB PO 4XDP PRN PAIN (Reported) Prednisone 20 MG TABLET 3 TAB PO DAILY ASTHMA Ranitidine HCl (Zantac) 300 MG TABLET 1 TAB PO DAILY ACID REFLUX (Reported) Tamsulosin HCl (Flomax) 0.4 MG CAP.ER.24H 1 CAP PO DAILY PROSTATE (Reported) Triage Nurses Notes Reviewed? yes Onset: Gradual Duration: constant Severity: moderate Prior Episodes/Possible Cause: chronic episodes HPI: Patient is a 71-year-old male who presents emergency room with concerns of a 2 to three-day history of worsening shortness of breath and generalized vague symptoms of not feeling well. Patient is a previous smoker denies any alcohol use denies any chest pain arm pain jaw pain nausea vomiting leg swelling hemoptysis. Patient has been evaluated on multiple occasions for similar complaints. 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 No (GUILLERMO HARTMAN) Review of Systems Review of Systems Constitutional: Reports: no symptoms. EENTM: Reports: no symptoms. Respiratory: Reports: see HPI, cough, short of breath. Cardiovascular: Reports: no symptoms. GI: Reports: no symptoms. Genitourinary: Reports: no symptoms. Musculoskeletal: Reports: no symptoms. Skin: Reports: no symptoms. Neurological/Psychological: Reports: no symptoms. Hematologic/Endocrine: Reports: no symptoms. Immunologic/Allergic: Reports: no symptoms. All Other Systems: Reviewed and Negative (GUILLERMO HARTMAN) Physical Exam Physical Exam General Appearance: no apparent distress, alert, comfortable Respiratory: normal breath sounds, chest non-tender, no respiratory distress Comments: Well-developed well-nourished person in no acute distress HEENT: Normal EENT exam, Neck: Supple, no lymphadenopathy, normal range of motion without pain or tenderness Back: Nontender, no CVA tenderness. Cardiovascular: Regular rate and rhythms no murmurs rubs or gallops, normal JVP Respiratory: Chest nontender. No respiratory distress.breath sounds clear to auscultation bilaterally Abdomen: Soft, nontender nondistended, no appreciable organomegaly. Normal bowel sounds. No ascites Extremity: No edema, no calf tenderness to palpation, normal and equal pulses. Neuro: Alert oriented x3, motor sensory normal, Skin: No appreciable rash on exposed skin, skin is warm and dry. Psych: Mood and affect is normal, memory and judgment is normal. Core Measures ACS in differential dx? No Severe Sepsis Present: No Septic Shock Present: No (GUILLERMO HARTMAN) Progress Differential Diagnosis: asthma, AMI, bronchitis, costochondritis, CHF, COPD, musculoskeletal pain, pericarditis, pulmonary embolism, pneumonia, pneumothorax, rib fracture, unstable angina Plan of Care: Orders Procedure Date/time Status Regular Diet 11/16 B Active TROPONIN LEVEL 11/15 1800 Complete COMPREHENSIVE METABOLIC PANEL 11/15 1800 Complete CBC WITHOUT DIFFERENTIAL 11/15 1800 Complete EKG 11/15 1800 Active Laboratory Tests 11/15/16 1838: Anion Gap 10, Estimated GFR > 60, BUN/Creatinine Ratio 7.8, Glucose 80, Calcium 9.0, Total Bilirubin 0.8, AST 22, ALT 39, Alkaline Phosphatase 70, Troponin I < 0.01, Total Protein 6.6, Albumin 3.9, Globulin 2.7, Albumin/Globulin Ratio 1.4, CBC w Diff NO MAN DIFF REQ, RBC 4.86, MCV 89.3, MCH 29.3, RDW 13.8, MPV 8.2, Gran % 76.1 H, Lymphocytes % 15.2 L, Monocytes % 6.1, Eosinophils % 2.1, Basophils % 0.5, Absolute Granulocytes 7.4 H, Absolute Lymphocytes 1.5, Absolute Monocytes 0.6, Absolute Eosinophils 0.2, Absolute Basophils 0, PUBS MCHC 32.8 L Patient currently is resting comfortably at bedside 98% room air oxygenation no respiratory distress afebrile nontoxic appearing denies any chest pain clear lungs to auscultation. Patient received nebulizer treatment with improvement of symptomatic relief of dyspnea. Upon discharge patient looks well no apparent distress and will comply with discharge instructions and had no questions Patient had unremarkable blood work EKG and chest x-ray he was strongly advised to follow-up with his break up worker. There is no concern at this time a pulmonary embolism (GUILLERMO HARTMAN) Diagnostic Imaging: Viewed by Me: Radiology Read. Radiology Impression: no acute abnormality, no fracture Initial ED EKG: SINUS RHYTHM NOTED AT 80 BPM Comments: PATIENT: OG PATEL PRESENT AGE: 71 PATIENT ACCOUNT NO: [id number] : 43 LOCATION: [facility] ORDERING PHYSICIAN: GUILLERMO DELANEY SERVICE DATE: 11/15/16-1800 EXAM TYPE: RAD - XRY-CHEST XRAY, PA AND LATERAL EXAMINATION: XR CHEST CLINICAL INFORMATION: Shortness of breath COMPARISON: Prior chest September 2016 TECHNIQUE: 2 views of the chest were obtained. FINDINGS: Minimal scarring and/or discoid atelectasis left base. Lungs otherwise clear. The cardiac silhouette mediastinum pulmonary vascularity are normal. Bone and soft tissues unremarkable IMPRESSION: No acute disease. Minimal scarring and/or discoid atelectasis left base DICTATED BY: VIPUL RIVERA MD DATE/TIME DICTATED:11/15/161832 CONSUMER LENDER:RJ (GUILLERMO HARTMAN) Departure Departure Disposition: HOME OR SELF CARE Condition: Stable Clinical Impression Primary Impression: Dyspnea Referrals: GOLD SMITH MD (PCP/Family) Additional Instructions: As discussed continue home medications as directed. Follow-up with your break up worker next week for recheck of symptoms. If symptoms worsen return to emergency room Departure Forms: Customer Survey General Discharge Information (GUILLERMO HARTMAN) PA/LEGAL ASSISTANT Co-Sign Statement Statement: ED Attending supervision documentation- [x] I saw and evaluated the patient. I have also reviewed all the pertinent lab results and diagnostic results. I agree with the findings and the plan of care as documented in the PA's/LEGAL ASSISTANT's documentation. [] I have reviewed the ED Record and agree with the PA's/LEGAL ASSISTANT's documentation. [] Additions or exceptions (if any) to the PAs/LEGAL ASSISTANT's note and plan are summarized below: [] (PETER CHAPPELL,JERRICA Topete) Critical Care Note Critical Care Note Critical Care Time: non-applicable (GUILLERMO HARTMAN)
--- NOTE | 2016-11-15 18:39 | RADIOLOGY REPORT ---
EXAMINATION: XR CHEST CLINICAL INFORMATION: Shortness of breath COMPARISON: Prior chest September 2016 TECHNIQUE: 2 views of the chest were obtained. FINDINGS: Minimal scarring and/or discoid atelectasis left base. Lungs otherwise clear. The cardiac silhouette mediastinum pulmonary vascularity are normal. Bone and soft tissues unremarkable IMPRESSION: No acute disease. Minimal scarring and/or discoid atelectasis left base
[2016-11-15 18:47] LABS: ABSOLUTE BASOPHIL COUNT 0 /CUMM (0.0-0.2); ABSOLUTE EOSINOPHIL COUNT 0.2 /CUMM (0.0-0.7); ABSOLUTE GRANULOCYTE CT 7.4 /CUMM (1.4-6.5); ABSOLUTE LYMPH COUNT 1.5 /CUMM (1.2-3.4); ABSOLUTE MONOCYTE COUNT 0.6 /CUMM (0.10-0.60); BASOPHIL % 0.5 % (0.0-2.0); EOSINOPHIL % 2.1 % (0-5); GRANULOCYTE % 76.1 % (42.2-75.2); HEMATOCRIT 43.4 % (42-52); MEAN CORPUSCULAR HGB 29.3 PG (27.0-31.0); MEAN CORPUSCULAR HGB CONC 32.8 G/DL (33.0-37.0); MEAN CORPUSCULAR VOLUME 89.3 FL (80.0-94.0); MEAN PLATELET VOLUME 8.2 FL (7.4-10.4); PLATELET COUNT 226 /CUMM (130-400); RBC DISTRIBUTION WIDTH 13.8 % (11.5-14.5); RED BLOOD CELL CT 4.86 /CUMM (4.70-6.10); WHITE BLOOD CELL COUNT 9.7 /CUMM (4.8-10.8)
[2016-11-15 19:45] VITALS: BP 166/71
== END 2016-11-15 19:46 ==
LOC: ERH 17:58
PROVIDERS: Physician Assistant
DX: R06.00 Dyspnea, unspecified (principal)
CPT/HCPCS: 1263; 93005; 93010

== ENCOUNTER 2016-11-20 19:25 | Emergency (ER) | payer OTHER, MEDICARE ==
[~2016-11-20] VITALS: Ht 172.7 cm; Wt 66.7 kg
--- NOTE | 2016-11-20 19:50 | ED GENERAL ADULT ---
History of Present Illness General Chief Complaint: General Adult Stated Complaint: "PE PT PAIN EVERYWHERE" Source: patient, old records Exam Limitations: no limitations Vital Signs & Intake/Output Vital Signs & Intake/Output Vital Signs Date Time Temp Pulse Resp B/P B/P Pulse O2 O2 Flow FiO2 Mean Ox Delivery Rate 11/20 2110 97.4 67 18 179/88 96 Room Air 11/20 1928 98.0 78 18 162/97 96 Room Air ED Intake and Output 11/21 0000 11/20 1200 Intake Total Output Total Balance Patient 147 lb Weight Weight Reported by Patient Measurement Method Allergies Coded Allergies: Iodinated Contrast Media - Oral and (IODINATED CONTRAST MEDIA - IV DYE) (MAKES ME SICK FOR DAYS PER PT 11/15/16) hydromorphone (Mild, DIZZINESS AND ITCHINESS 11/15/16) Reconcile Medications Albuterol Sulfate (Ventolin Hfa) 90 MCG HFA.AER.AD 2 PUF INH Q4-6 PRN PRN SHORTNESS OF BREATH (Reported) Hydroxyzine HCl 50 MG TABLET 1 TAB PO QPM PRN itching Methylprednisolone. (Medrol) 4 MG TAB.DS.PK 1 DP PO AD rash 6 on day 1 then reduce by one tablet daily until gone Triage Note: PT TO TRIAGE WITH MULTIPLE COMPLAINTS - BODYACHES ALL OVER, RASH TO BILAT LOWER EXTREM, INTERMITTENT SOB, ABDOMINAL DISCOMFORT, CHRONIC LEFT SIDED PAIN, INTERMITTENT CHEST PAIN. PT DENIES N/V/D, DENIES URINARY S/S. NO ACUTE DISTRESS NOTED IN TRIAGE. VSS. Triage Nurses Notes Reviewed? yes Onset: Gradual Duration: day(s): (3), constant Timing: recent history Injury Environment: home Severity: mild Severity Numbers: 5 No Modifying Factors: none Associated Symptoms: DENIES HPI: 71-year-old male presents to ER complaining with 3 day history of dyspnea with exertion. He has a history of emphysema he is not O2 dependent is not currently on prednisone. He states that he has been using his inhaler and states when he uses inhaler and takes Percocet he develops a rash to his inner thighs. It resolves on its own however it is extremely itchy. He denies rash at this time. He denies any other rash to his body no sore throat difficulty swallowing. He denies fever chills cough chest pain abdominal pain nausea vomiting or diarrhea. Patient is well-known to this ER has been seen numerous times in the past for similar complaints. (GUILLERMO RUSSO) Past History Travel History Traveled to [place] past 21 day No Medical History Any Pertinent Medical History? 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 No (GUILLERMO RUSSO) Review of Systems Review of Systems Constitutional: Reports: see HPI. All Other Systems: Reviewed and Negative Comments Review of systems: See HPI, All other systems negative. Constitutional, no chills no fever, no malaise no weight loss HEENT: No visual changes no sore throat no congestion, no ear pain Cardiovascular: No chest pain , no palpitation , no orthopnea Skin: no rashes, no change in skin Respiratory: No dyspnea no cough no sputum no hemoptysis GI: No nausea no vomiting, no diarrhea, no bloating/constipation : No dysuria No hematuria, no frequency, no discharge Muscle skeletal: No joint pain, no joint swelling, no back pain, no neck pain, Neurologic: No numbness no confusion, no headache Psych: No stress no depression,. Heme/endocrine: No bruising no bleeding Immunology: No lymphadenopathy (GUILLERMO RUSSO) Physical Exam Physical Exam General Appearance: well developed/nourished, no apparent distress, alert, awake , comfortable Comments: Well-developed well-nourished person in no acute distress HEENT: Normal EENT exam; PERRL, EOMI, no nystagmus. HEAD is atraumatic. moist mucous membranes. Neck: Supple, no lymphadenopathy, normal range of motion without pain or tenderness Back: Nontender, no CVA tenderness. Full range of motion Cardiovascular: Regular rate and rhythms no murmurs rubs or gallops, normal JVP Respiratory: Chest nontender.There were no bony deformities, no asymmetry. No respiratory distress. Patient speaking in full complete sentences. Breath sounds clear to auscultation bilaterally: NO W/R/R Abdomen: Soft, nontender nondistended, no appreciable organomegaly. Normal bowel sounds. No rebound/guarding, No appreciable enlargement of the abdominal aorta, No ascites. Extremity: No edema, full range of motion of extremities, normal and equal pulses bilaterally, 5 out of 5 strength noted to bilateral upper and lower extremities Neuro: Alert oriented x3, motor sensory normal, cranial nerves II through XII grossly intact. There were no obvious focal neurologic abnormalities. Skin: No appreciable rash on exposed skin, skin is warm and dry. Psych: Mood and affect is normal, memory and judgment is normal. Core Measures ACS in differential dx? No CVA/TIA Diagnosis: No Severe Sepsis Present: No Septic Shock Present: No (GUILLERMO RUSSO) Progress Differential Diagnoses I considered the following diagnoses in my evaluation of the patient: COPD exacerbation pneumonia bronchitis, allergic reaction urticaria Plan of Care: Orders Procedure Date/time Status XRY-CHEST XRAY, PA AND LATERAL 11/20 2002 Active Current Medications Sig/Buddy Start time Last Medication Dose Stop Time Status Admin Albuterol Sulfate 3 ML ONCE ONE 11/20 2014 UNVr (Proventil) 11/21 2015 Ipratropium [place] 2.5 ML ONCE ONE 11/20 2014 UNVr (Atrovent) 11/21 2015 Patient is medicated with DuoNeb there was no rash noted after the albuterol treatment discussed with him his x-ray results patient is been seen numerous times for the past she speaking in full complete sentences able toward a steady gait I discussed with him plan of care prescription for prednisone and hydroxyzine provided he feels comfortable plan cleared for discharge (GUILLERMO RUSSO) Diagnostic Imaging: Viewed by Me: Radiology Read. Discussed w/RAD: Radiology Read. Radiology Impression: ATIENT: OG PATEL PRESENT AGE: 71 PATIENT ACCOUNT NO: [id number] : 43 LOCATION: [facility] ORDERING PHYSICIAN: GUILLERMO DELANEY SERVICE DATE: 11/20/16 EXAM TYPE: RAD - XRY- CHEST XRAY, PA AND LATERAL EXAMINATION: XR CHEST CLINICAL INFORMATION: Dyspnea, cough, evaluation for pneumonia COMPARISON: 11/15/2016 and 09/20/2016 chest x- rays TECHNIQUE: 2 views of the chest were obtained. FINDINGS: Normal cardiomediastinal silhouette. Atherosclerotic calcifications of aortic arch present. The pulmonary vascularity is normal. Platelike atelectasis versus scar at the left lung again noted. The right lung is clear. Blunting of the posterior costophrenic angle can represent a small amount of pleural effusion or pleural thickening and is not significantly changed since prior exams. IMPRESSION: Stable chest x-ray as compared to 09/20/2016 and 11/15/2016 x-rays with atelectatic changes versus scar at the left lung base and blunting of the posterior costophrenic angles. DICTATED BY: CHAU GRIFFIN MD DATE/TIME DICTATED:11/20/162055 FERRY TERMINAL SUPERVISOR:RJ DATE/TIME TRANSCRIBED:2055 CONFIDENTIAL, DO NOT COPY WITHOUT APPROPRIATE AUTHORIZATION. < Electronically signed in Other Vendor System> SIGNED BY: CHAU GRIFFIN MD 11/20/162101 Initial ED EKG: none (GUILLERMO RUSSO) Departure Departure Time of Disposition: 2106 Disposition: HOME OR SELF CARE Condition: Stable Clinical Impression Primary Impression: COPD (chronic obstructive pulmonary disease) Referrals: GOLD SMITH MD (PCP/Family) Additional Instructions: PREDNISONE DIRECTED. HYDROXYZINE FOR ITCHING. FOLLOW UP WITH YOUR PMD, RETURN WITH ANY CONCERNS Departure Forms: Customer Survey General Discharge Information Prescriptions: Current Visit Scripts Methylprednisolone. (Medrol) 1 DP PO AD #1 DP 6 on day 1 then reduce by one tablet daily until gone Hydroxyzine HCl 1 TAB PO QPM PRN itching #30 TAB (GUILLERMO RUSSO) PA/PHOTOENGRAVER Co-Sign Statement Statement: ED Attending supervision documentation- [X] I saw and evaluated the patient. I have also reviewed all the pertinent lab results and diagnostic results. I agree with the findings and the plan of care as documented in the PA's/PHOTOENGRAVER's documentation. [X] I have reviewed the ED Record and agree with the PA's/PHOTOENGRAVER's documentation. [] Additions or exceptions (if any) to the PAs/PHOTOENGRAVER's note and plan are summarized below: [] (AYDEE CHAPPELL,DERIK) Critical Care Note Critical Care Note Critical Care Time: non-applicable (GUILLERMO RUSSO)
--- NOTE | 2016-11-20 21:02 | RADIOLOGY REPORT ---
EXAMINATION: XR CHEST CLINICAL INFORMATION: Dyspnea, cough, evaluation for pneumonia COMPARISON: 11/15/2016 and 09/20/2016 chest x-rays TECHNIQUE: 2 views of the chest were obtained. FINDINGS: Normal cardiomediastinal silhouette. Atherosclerotic calcifications of aortic arch present. The pulmonary vascularity is normal. Platelike atelectasis versus scar at the left lung again noted. The right lung is clear. Blunting of the posterior costophrenic angle can represent a small amount of pleural effusion or pleural thickening and is not significantly changed since prior exams. IMPRESSION: Stable chest x-ray as compared to 09/20/2016 and 11/15/2016 x-rays with atelectatic changes versus scar at the left lung base and blunting of the posterior costophrenic angles.
[2016-11-20] MEDS ORDERED: MEDROL4 M2 PO (21:08)
[2016-11-20] MEDS ORDERED: HYDROXYZINE HCL50 M1 PO (21:08)
[2016-11-20 21:11] VITALS: BP 179/88
== END 2016-11-20 21:21 ==
LOC: ERH 19:25
DX: J44.9 Chronic obstructive pulmonary disease, unspecified (principal); Z87.891 Personal history of nicotine dependence
CPT/HCPCS: 1263

== ENCOUNTER 2016-11-23 08:03 | Emergency (ER) | payer OTHER, MEDICARE ==
[~2016-11-23] VITALS: Ht 172.7 cm; Wt 66.7 kg
[~2016-11-23 08:03] MED LIST changes: +HYDROXYZINE HCL50 M1 PO
--- NOTE | 2016-11-23 08:35 | ED GENERAL ADULT ---
History of Present Illness General Chief Complaint: General Adult Stated Complaint: NOT FEELING WELL Source: patient Exam Limitations: no limitations Vital Signs & Intake/Output Vital Signs & Intake/Output Vital Signs Date Time Temp Pulse Resp B/P B/P Pulse O2 O2 Flow FiO2 Mean Ox Delivery Rate 11/23 1042 98.6 76 18 148/85 98 Room Air 11/23 0829 96 Room Air 11/23 0817 97.8 73 18 161/88 96 Room Air Reconcile Medications Acetaminophen (Tylenol Extra Strength) 500 MG TABLET 1 TAB PO DAILY PAIN ( Reported) Albuterol Sulfate (Ventolin Hfa) 90 MCG HFA.AER.AD 2 PUF INH Q4-6 PRN PRN SHORTNESS OF BREATH (Reported) Budesonide/Formoterol Fumarate (Symbicort 160-4.5 Mcg Inhaler) 160 MCG-4.5 MCG/ ACTUATION HFA.AER.AD 2 PUF INH BID SHORTNESS OF BREATH (Reported) Clonazepam 0.5 MG TABLET 1 TAB PO DAILY ANXIETY (Reported) Oxycodone HCl/Acetaminophen (Oxycodone-Acetaminophen 10-325) 10 MG-325 MG TABLET 1 TAB PO 4XDP PRN PAIN (Reported) Ranitidine HCl 300 MG TABLET 1 TAB PO QPM GI (Reported) Tamsulosin HCl 0.4 MG CAP.ER.24H 1 CAP PO DAILY PROSTATE (Reported) Triage Note: PT STATES, "I JUST CAN'T FUNCTION, I HAVE PAIN ALL OVER AND FEEL SHAKY". "MY LANDLORD IS KICKING ME OUT". ALSO C/O DIZZINESS AND SOB. Triage Nurses Notes Reviewed? yes Onset: Gradual Duration: worse persistent since (2 weeks) Timing: recent history Injury Environment: home Severity: moderate Severity Numbers: 7 No Modifying Factors: none HPI: Patient is a 71-year-old male with history of hypertension, COPD, chronic pain presenting to the emergency department with chief complaint of diffuse pain all over, generalized malaise testing on for the past 2 weeks. He also reports that he's been under a lot of stress because his landlord is kicking him out of the house and told him to get out today. Denies any nausea or vomiting. No fevers or chills. Denies chest pain. No shortness of breath. He does report chronic cough. He was seen and evaluated here for similar symptoms 3 days ago. They did a chest x-ray and everything came back okay. he was also prescribed prednisone to help with pain and cough. He reports that he threw it out because it made him even more jittery. No visual changes. Denies any weakness. No numbness or tingling. Reports symptoms have been constant for the past 2 weeks. (ALDO VALDOVINOS) Allergies Coded Allergies: Iodinated Contrast- Oral and IV Dye (IODINATED CONTRAST MEDIA - IV DYE) (MAKES ME SICK FOR DAYS PER PT 11/15/16) hydromorphone (Mild, DIZZINESS AND ITCHINESS 11/15/16) (AYDEE CHAPPELL,DERIK) Past History Travel History Traveled to [place] past 21 day No Medical History Any Pertinent Medical History? 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 No (ALDO VALDOVINOS) Review of Systems Review of Systems Constitutional: Reports: malaise. Comments Review of systems: See HPI, All other systems negative. Constitutional, no chills fever or weight loss HEENT: No visual changes no sore throat no congestion Cardiovascular: No chest pain ,palpitation , orthopnea or ankle swelling Skin, no jaundice no rashes Respiratory: No dyspnea cough sputum or hemoptysis GI: No nausea no vomiting : No dysuria No hematuria Muscle skeletal:no neck pain, Neurologic: No numbness no confusion no [place]ja Psych: No stress anxiety or depression,. Heme/endocrine: No bruising no bleeding no polyuria or polydipsia Immunology: No splenectomy or history of AIDS (ALDO VALDOVINOS) Physical Exam Physical Exam General Appearance: well developed/nourished, no apparent distress, alert, awake , comfortable Comments: Well-developed well-nourished person in no acute distress HEENT: extraocular motion intact, no nystagmus. Pupils equally round and reactive to light and accommodation. Small amount of cerumen noted in the left external canal, no cerumen impaction. Nose is atraumatic. External auditory canal and Tympanic membranes clear. Pharynx normal. No swelling or edema. Slightly dry oral mucosa. Neck: Supple, no lymphadenopathy, normal range of motion without pain or tenderness Back: Nontender, no CVA tenderness. Full range of motion Cardiovascular: Regular rate and rhythms no murmurs rubs or gallops, normal JVP Respiratory: Chest nontender. No respiratory distress.breath sounds clear to auscultation bilaterally Abdomen: Soft, nontender nondistended, no appreciable organomegaly. Normal bowel sounds. No ascites Extremity: No edema, no calf tenderness to palpation, normal and equal pulses. Full range of motion of upper and lower extremities without difficulty or pain. Software Engineering Manager strength is equal and symmetric bilaterally. Muscular strength is 5 out of 5 in all chimneys. Neuro: Alert oriented x3, motor sensory normal, cranial nerves II through XII grossly intact. Cerebellar testing is unremarkable. Patellar reflexes are 2+ bilaterally. Gait is steady. Skin: No appreciable rash on exposed skin, skin is warm and dry. Psych: Mood and affect is normal, memory and judgment is normal. Core Measures ACS in differential dx? Yes CVA/TIA Diagnosis: No Severe Sepsis Present: No Septic Shock Present: No (ALDO VALDOVINOS) Progress Differential Diagnoses I considered the following diagnoses in my evaluation of the patient: Dehydration, electrolyte abnormality, viral syndrome, viral labyrinthitis, medication interaction, medication side effect, malingering Plan of Care: Orders Procedure Date/time Status URINALYSIS 11/23 850 Complete TSH REFLEX 11/23 850 Complete TROPONIN LEVEL 11/23 850 Complete COMPREHENSIVE METABOLIC PANEL 11/23 850 Complete CBC WITHOUT DIFFERENTIAL 11/23 850 Complete EKG 11/23 08 Active Laboratory Tests 11/23/16 0907: Urinalysis LIGHT H, Urine Color YEL, Urine Clarity CLEAR, Urine pH 6.0, Ur Specific [place] 1.025, Urine Protein TRACE H, Urine Ketones NEG, Urine Nitrite NEG, Urine Bilirubin NEG, Urine Urobilinogen 0.2, Ur Leukocyte Esterase NEG, Ur Microscopic SEDIMENT EXAMINED, Urine RBC 1-3, Urine WBC 3-5 H, Ur Epithelial Cells RARE, Urine Bacteria FEW H, Urine Mucus MANY H, Urine Hemoglobin NEG, Urine Glucose NEG 11/23/16 0856: Anion Gap 9, Estimated GFR > 60, BUN/Creatinine Ratio 11.3, Glucose 80, Calcium 9.1, Total Bilirubin 0.9, AST 22, ALT 35, Alkaline Phosphatase 60, Troponin I < 0.01, Total Protein 6.4, Albumin 3.7, Globulin 2.7, Albumin/Globulin Ratio 1.4, TSH &T3 &Free T4 Intrp 0.804, CBC w Diff NO MAN DIFF REQ, RBC 4.95, MCV 88.6, MCH 29.4, RDW 13.4, MPV 8.7, Gran % 67.0, Lymphocytes % 23.4, Monocytes % 7.2, Eosinophils % 2.1, Basophils % 0.3, Absolute Granulocytes 4.2, Absolute Lymphocytes 1.5, Absolute Monocytes 0.5, Absolute Eosinophils 0.1, Absolute Basophils 0, PUBS MCHC 33.2 Initial ED EKG: sinus rhythm at 73 beats. Prior EKG: unchanged Comments: Blood work is unremarkable including troponin and TSH. Patient likely has chronic pain, also reporting that he is being evicted from his house today. And patient is also under a lot of stress. No EKG changes. Patient complaining of any shortness of breath or chest pain. He will continue previously prescribed medications. He'll follow up with the primary care physician this week. He will return for any worsening symptoms or concerns. No signs of dehydration or anemia. Discussed with Dr. Parsons who agrees with plan. (ALDO VALDOVINOS) Departure Departure Time of Disposition: 1034 Disposition: HOME OR SELF CARE Condition: Stable Clinical Impression Primary Impression: Chronic pain Qualifiers: Chronic pain type: other chronic pain Qualified Code: G89.29 - Other chronic pain Referrals: GOLD SMITH MD (PCP/Family) Additional Instructions: Follow-up with your primary care physician, make an appointment. Increase fluids. Return for worsening symptoms or concerns. Departure Forms: Customer Survey General Discharge Information (ALDO VALDOVINOS) PA/IRON CASTER Co-Sign Statement Statement: ED Attending supervision documentation- [] I saw and evaluated the patient. I have also reviewed all the pertinent lab results and diagnostic results. I agree with the findings and the plan of care as documented in the PA's/IRON CASTER's documentation. [X] I have reviewed the ED Record and agree with the PA's/IRON CASTER's documentation. [] Additions or exceptions (if any) to the PAs/IRON CASTER's note and plan are summarized below: [] (AYDEE CHAPPELL,DERIK) Critical Care Note Critical Care Note Critical Care Time: non-applicable (PHU DELANEY,ALDO)
[2016-11-23] MEDS ORDERED: SYMBICORT 16010.2 GM INH (08:51)
[2016-11-23] MEDS ORDERED: RANITIDINE HCL300 M1 PO (08:51)
[2016-11-23] MEDS ORDERED: OXYCODONE-ACET1 EAC1 PO (08:52)
[2016-11-23] MEDS ORDERED: CLONAZEPAM0.5 M2 PO (08:53)
[2016-11-23] MEDS ORDERED: TAMSULOSIN HCL0.4 M1 PO (08:54)
[2016-11-23] MEDS ORDERED: TYLENOL EXTRA500 M2 PO (08:54)
[2016-11-23 09:18] LABS: ABSOLUTE BASOPHIL COUNT 0 /CUMM (0.0-0.2); ABSOLUTE EOSINOPHIL COUNT 0.1 /CUMM (0.0-0.7); ABSOLUTE GRANULOCYTE CT 4.2 /CUMM (1.4-6.5); ABSOLUTE LYMPH COUNT 1.5 /CUMM (1.2-3.4); ABSOLUTE MONOCYTE COUNT 0.5 /CUMM (0.10-0.60); BASOPHIL % 0.3 % (0.0-2.0); EOSINOPHIL % 2.1 % (0-5); HEMATOCRIT 43.9 % (42-52); MEAN CORPUSCULAR HGB 29.4 PG (27.0-31.0); MEAN CORPUSCULAR HGB CONC 33.2 G/DL (33.0-37.0); MEAN CORPUSCULAR VOLUME 88.6 FL (80.0-94.0); MEAN PLATELET VOLUME 8.7 FL (7.4-10.4); PLATELET COUNT 225 /CUMM (130-400); RBC DISTRIBUTION WIDTH 13.4 % (11.5-14.5); RED BLOOD CELL CT 4.95 /CUMM (4.70-6.10); WHITE BLOOD CELL COUNT 6.3 /CUMM (4.8-10.8)
[2016-11-23 10:42] VITALS: BP 148/85
== END 2016-11-23 10:42 ==
LOC: ERH 08:03
PROVIDERS: Physician Assistant
DX: G89.29 Other chronic pain (principal); R53.81 Other malaise
CPT/HCPCS: 81001; 93005; 93010

== ENCOUNTER 2016-12-14 19:56 | Emergency (ER) | payer OTHER, MEDICARE ==
[~2016-12-14] VITALS: Ht 172.7 cm; Wt 63.5 kg
[~2016-12-14 19:56] MED LIST changes: +RANITIDINE HCL300 M1 PO; +TAMSULOSIN HCL0.4 M1 PO; +TYLENOL EXTRA500 M2 PO
[2016-12-14] MEDS ORDERED: VITAMIN D250000 UNIT PO (20:55)
[2016-12-14] MEDS ORDERED: HYDROXYZINE HCL50 M1 (20:57)
--- NOTE | 2016-12-14 21:19 | ED AMS/SEIZURE/WEAK/DIZZY ---
History of Present Illness General Chief Complaint: General Adult Stated Complaint: DIZZY SOB Source: patient Exam Limitations: no limitations Vital Signs & Intake/Output Vital Signs & Intake/Output Vital Signs Date Time Temp Pulse Resp B/P B/P Pulse O2 O2 Flow FiO2 Mean Ox Delivery Rate 12/14 2245 96 12/14 2237 97.6 60 18 169/90 95 Room Air 12/14 2032 99.0 73 16 169/88 95 Room Air ED Intake and Output 12/15 0000 12/14 1200 Intake Total Output Total Balance Patient 140 lb Weight Weight Reported by Patient Measurement Method Allergies Coded Allergies: Iodinated Contrast- Oral and IV Dye (IODINATED CONTRAST MEDIA - IV DYE) (MAKES ME SICK FOR DAYS PER PT 11/15/16) hydromorphone (Mild, DIZZINESS AND ITCHINESS 11/15/16) Reconcile Medications Acetaminophen (Tylenol Extra Strength) 500 MG TABLET 1 TAB PO DAILY PAIN ( Reported) Albuterol Sulfate (Ventolin Hfa) 90 MCG HFA.AER.AD 2 PUF INH Q4-6 PRN PRN SHORTNESS OF BREATH (Reported) Budesonide/Formoterol Fumarate (Symbicort 160-4.5 Mcg Inhaler) 160 MCG-4.5 MCG/ ACTUATION HFA.AER.AD 2 PUF INH BID SHORTNESS OF BREATH (Reported) Clonazepam 0.5 MG TABLET 2 TAB PO DAILY ANXIETY (Reported) Hydroxyzine HCl (Unknown Strength) TABLET (Unknown Dose) UNKNOWN (Reported) Meclizine HCl 25 MG TABLET 1 TAB PO TIDPRN dizziness Oxycodone HCl/Acetaminophen (Oxycodone-Acetaminophen 10-325) 10 MG-325 MG TABLET 1 TAB PO 4XDP PRN PAIN (Reported) Ranitidine HCl 300 MG TABLET 1 TAB PO QPM GI (Reported) Tamsulosin HCl 0.4 MG CAP.ER.24H 1 CAP PO DAILY PROSTATE (Reported) Triage Note: TO ED WITH MULTIPLE COMPLAINTS, WELL KNOWN TO ED. C/O DIZZINESS AND BLURRED VISION. ABLE TO WALK WITH STRONG STEADY GAIT, SPEECH CLEAR, NO FACIAL DROOP NOTED. NEUROS INTACT. C/O SOB, BUT NONE OBSERVED AFTER ACTIVITY IN TRIAGE. ALSO COMPLAINS "EVERYTHING HURTS" AND IDENTIFIES ALMOST EVERY BODY PART. -N/V/D, - SYMPTOMS. C/O A LOT OF STRESS LATELY. ORTHOS NEGATIVE Triage Nurses Notes Reviewed? yes Onset: Abrupt Duration: day(s):, constant Timing: recent history Injury Environment: home No Modifying Factors: none HPI: 71-year-old male comes into emergency room for further evaluation of chronic dizziness and chronic shortness of breath. Dizziness is been going on for many months. Shortness of breath has been going on for years. Patient has a history of COPD. Nothing seems to make the symptoms better or worse. Patient has been seen here many times in the past for her. No fever chills cough congestion runny nose abdominal pain. Patient having difficulty describing the dizziness. (DEMI MITCHELL) Past History Travel History Traveled to [place] past 21 day No Medical History Any Pertinent Medical History? 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 Cardiovascular: hypertension Respiratory: emphysema Gastrointestinal: GERD Hepatic: NONE Renal: benign prost hyperplasia Musculoskeletal: osteoporosis, CHRONIC PAIN Psychiatric: anxiety Endocrine: NONE Blood Disorders: NONE Cancer(s): NONE FOOD CONSULTANT/Reproductive: NONE History of MRSA: No History of VRE: No History of CDIFF: No Surgical History Surgical History: cataract removal Psychosocial History Who do you live with Patient/Self Services at Home None What is your primary language St Helen[place] Tobacco Use: Refused to answer Family History Family History, If Any: Relation not specified for: *No pertinent family history Hx Contributory? No (DEMI MITCHELL) Review of Systems Review of Systems Constitutional: Reports: no symptoms. EENTM: Reports: no symptoms. Respiratory: Reports: see HPI. Cardiovascular: Reports: no symptoms. GI: Reports: no symptoms. Genitourinary: Reports: no symptoms. Musculoskeletal: Reports: no symptoms. Skin: Reports: no symptoms. Neurological/Psychological: Reports: no symptoms. Hematologic/Endocrine: Reports: no symptoms. Immunologic/Allergic: Reports: no symptoms. All Other Systems: Reviewed and Negative (DEMI MITCHELL) Physical Exam Physical Exam General Appearance: well developed/nourished, no apparent distress, alert Head: atraumatic Eyes: Bilateral: normal appearance. Ears, Nose, Throat: normal ENT inspection Neck: normal inspection Respiratory: normal breath sounds, no respiratory distress Cardiovascular: regular rate/rhythm Gastrointestinal: soft Back: normal inspection Extremities: normal range of motion Neurologic/Psych: awake, alert, oriented x 3, normal gait Skin: intact, normal color Core Measures ACS in differential dx? Yes CVA/TIA Diagnosis: No Severe Sepsis Present: No Septic Shock Present: No (DEMI MITCHELL) Progress Differential Diagnosis: arrythmia, alcohol intoxication, anemia, benign positional vertigo, CVA/stroke, drug intoxication, encephalitis, hypoglycemia, hypoxia, intracranial Hem., intracranial mass/tumor, meningitis, pneumonia, presyncope, sepsis, subarachnoid Hem., vertebrobasilar insuff Plan of Care: Orders Procedure Date/time Status TROPONIN LEVEL 12/14 2050 Complete COMPREHENSIVE METABOLIC PANEL 12/14 2050 Complete CBC WITHOUT DIFFERENTIAL 12/14 2050 Complete EKG 12/14 2050 Active Laboratory Tests 12/14/162122: Anion Gap 11, Estimated GFR > 60, BUN/Creatinine Ratio 10.0, Glucose 86, Calcium 9.7, Total Bilirubin 1.0, AST 19, ALT 31, Alkaline Phosphatase 63, Troponin I < 0.01, Total Protein 6.6, Albumin 4.0, Globulin 2.6, Albumin/Globulin Ratio 1.5, CBC w Diff NO MAN DIFF REQ, RBC 5.36, MCV 90.0, MCH 29.6, RDW 13.9, MPV 8.8, Gran % 66.0, Lymphocytes % 24.1, Monocytes % 6.5, Eosinophils % 2.9, Basophils % 0.5, Absolute Granulocytes 5.5, Absolute Lymphocytes 2.0, Absolute Monocytes 0.5 , Absolute Eosinophils 0.2, Absolute Basophils 0, PUBS MCHC 32.9 L Initial ED EKG: normal intervals, normal p-waves, normal sinus rhythm, rate (58) (DEMI MITCHELL) Departure Departure Disposition: HOME OR SELF CARE Condition: Stable Clinical Impression Primary Impression: Dizziness Referrals: LUIS CHAPPELL,GOLD (PCP/Family) Additional Instructions: Take meclizine as prescribed. Follow-up with your primary care doctor. Return if any concerns worsening symptoms. Please go over all results of today's visit with your primary care doctor. Contact your primary care doctor to let them know you were here in the emergency room. There may be nonspecific findings which may not be related to your visit today here in the emergency room but may require further evaluation and chronic monitoring by your primary care doctor. If you had a laceration today the chance of foreign body always remains. You should follow-up with your primary care doctor for recheck in 3-5 days for a wound check. If you had an x-ray done there is a chance that a fracture could have been missed on initial read and you should follow-up with your primary care doctor for repeat x-rays if symptoms persist. If your blood pressure was elevated here in the emergency room please have rechecked by her primary care doctor within the next 48 hours by your primary care doctor. If you were prescribed a narcotic here in the emergency room or any type of controlled substances you're not allowed to drive while taking this medication or operate any type of heavy machinery. Narcotics can make you feel lightheaded dizziness nausea and can cause constipation. You may need to picking machine operator a stool softener. Thank you for choosing [facility] emergency room. Please return to the emergency room immediately if you have any other concerns worsening of symptoms. Departure Forms: Customer Survey General Discharge Information Prescriptions: Current Visit Scripts Meclizine HCl 1 TAB PO TIDPRN #20 TAB Comments Follow-up with your primary care doctor. Return if any concerns worsening symptoms. Patient clinically looks well. Nontoxic-appearing. In no apparent distress. (MARIA TERESA DELANEY,DEMI) PA/MEDICAL SERVICE TECHNICIAN Co-Sign Statement Statement: ED Attending supervision documentation- [x] I saw and evaluated the patient. I have also reviewed all the pertinent lab results and diagnostic results. I agree with the findings and the plan of care as documented in the PA's/MEDICAL SERVICE TECHNICIAN's documentation. [] I have reviewed the ED Record and agree with the PA's/MEDICAL SERVICE TECHNICIAN's documentation. [] Additions or exceptions (if any) to the PAs/MEDICAL SERVICE TECHNICIAN's note and plan are summarized below: [] (PETER CHAPPELL,JERRICA Topete)
[2016-12-14 21:32] LABS: ABSOLUTE BASOPHIL COUNT 0 /CUMM (0.0-0.2); ABSOLUTE EOSINOPHIL COUNT 0.2 /CUMM (0.0-0.7); ABSOLUTE GRANULOCYTE CT 5.5 /CUMM (1.4-6.5); ABSOLUTE MONOCYTE COUNT 0.5 /CUMM (0.10-0.60); BASOPHIL % 0.5 % (0.0-2.0); EOSINOPHIL % 2.9 % (0-5); HEMATOCRIT 48.2 % (42-52); MEAN CORPUSCULAR HGB 29.6 PG (27.0-31.0); MEAN CORPUSCULAR HGB CONC 32.9 G/DL (33.0-37.0); MEAN PLATELET VOLUME 8.8 FL (7.4-10.4); PLATELET COUNT 229 /CUMM (130-400); RBC DISTRIBUTION WIDTH 13.9 % (11.5-14.5); RED BLOOD CELL CT 5.36 /CUMM (4.70-6.10); WHITE BLOOD CELL COUNT 8.3 /CUMM (4.8-10.8)
[2016-12-14] MEDS ORDERED: MECLIZINE HCL25 MG PO (22:31)
[2016-12-14 22:37] VITALS: BP 169/90
== END 2016-12-14 22:59 ==
LOC: ERH 19:56
PROVIDERS: Physician Assistant Medical
DX: R42 Dizziness and giddiness (principal); R06.02 Shortness of breath
CPT/HCPCS: 1263; 93005; 93010

== ENCOUNTER 2017-07-22 19:30 | Emergency (ER) | payer OTHER, MEDICARE ==
[~2017-07-22] VITALS: Ht 172.7 cm; Wt 65.3 kg
[~2017-07-22 19:30] MED LIST changes: +ANORO ELLIPTA1 EACH INH; +DELTASONE20 MG PO; +HYDROXYZINE HCL50 M1; +MECLIZINE HCL25 MG PO; +PREDNISOLO15 MG/5 M4 PO
--- NOTE | 2017-07-22 21:34 | ED AMS/SEIZURE/WEAK/DIZZY ---
History of Present Illness General Chief Complaint: Dizziness Stated Complaint: DIZZINESS, "DR GAVE ME TOO MUCH PREDNISONE" Source: patient, old records Exam Limitations: no limitations Allergies Coded Allergies: Iodinated Contrast- Oral and IV Dye (IODINATED CONTRAST MEDIA - IV DYE) (MAKES ME SICK FOR DAYS PER PT 11/15/16) hydromorphone (Mild, DIZZINESS AND ITCHINESS 11/15/16) Reconcile Medications Acetaminophen (Tylenol Extra Strength) 500 MG TABLET 1-2 TAB PO DAILY PAIN ( Reported) Albuterol Sulfate (Ventolin Hfa) 90 MCG HFA.AER.AD 2 PUF INH Q4-6 PRN PRN SHORTNESS OF BREATH (Reported) Budesonide/Formoterol Fumarate (Symbicort 160-4.5 Mcg Inhaler) 160 MCG-4.5 MCG/ ACTUATION HFA.AER.AD 2 PUF INH BID SHORTNESS OF BREATH (Reported) Clonazepam 0.5 MG TABLET 2 TAB PO DAILY ANXIETY (Reported) Ranitidine HCl 300 MG TABLET 1 TAB PO QPM GI (Reported) Tamsulosin HCl 0.4 MG CAP.ER.24H 1 CAP PO DAILY PROSTATE (Reported) Umeclidinium Brm/Vilanterol Tr (Anoro Ellipta 62.5-25 Mcg INH) 62.5 MCG-25 MCG/ ACTUATION BLST.W.DEV 1 PUFF INH DAILY BREATHING PROBLEMS (Reported) Triage Note: PT TO ED C/O DIZZINESS SINCE BEING GIVEN 60 MG PREDNISONE AT [facility] LAST TUESDAY. TOOK PREDNISONE SAT THROUGH TUESDAY "AND THEN I THREW THEM OUT" BECAUSE THEY WERE MAKING ME SO DIZZY. "I WENT TO [facility] 2 DAYS AND THE SECOND TIME I WENT, THEY DISMISSED ME" "THEY TOOK 2 XRAYS AND THEY WERE GOOD" "I LIVE IN [place] NOW BUT I COME BACK HERE EVERY MONTH TO GET MY PERSCRIPTIONS" O2 SAT 98% ON RA. PT AMBULATING WITHOUT DIFFICULTY "I DIDN'T WANT TO DRIVE FEELING LIKE THIS" ON ARRIVAL TO ED, PT STATED HE HAD BEEN GIVEN TOO MUCH PROZAC, BUT CLARIFIED WHAT MEDICATION WAS FOR AND THE DOSAGE THEN REMEMBER THAT THE MEDICATION WAS PREDNISONE. "I'M NOT TAKING ANY OTHER MEDICATIONS THAT START WITH A "P"" Triage Nurses Notes Reviewed? yes Onset: Gradual Duration: day(s): (3), constant Timing: recent history Injury Environment: home Severity: moderate Severity Numbers: 6 No Modifying Factors: none Associated Symptoms: denies HPI: 72-year-old male well-known to this ER presents to ER complaining of a 3 day history of dizziness, generalized body aches, difficulty sleeping and "vivid dreams" that began after he was sent home with prednisone after being seen at [facility] for shortness of breath. He was on a taper of 60 mg followed by 3 days of 50 mg. He is been on prednisone before but believes is never been on a stronger dose. He denies any symptoms at this time no chest pain palpitations headache nausea vomiting abdominal pain. No modifying factors or associated symptoms otherwise. dizziness is not worse with head movement, no tinnitus (Kodi Fernandez) Vital Signs & Intake/Output Vital Signs & Intake/Output Vital Signs Date Time Temp Pulse Resp B/P B/P Pulse O2 O2 Flow FiO2 Mean Ox Delivery Rate 07/23 0150 97.8 84 16 139/82 96 Room Air 07/22 2349 96.7 88 18 149/84 95 Room Air 07/22 1949 97.5 75 18 168/94 98 Room Air ED Intake and Output 07/23 0000 07/22 1200 Intake Total Output Total Balance Patient 144 lb Weight Weight Reported by Patient Measurement Method (Brina CHAPPELL,Tomás Martin) Past History Travel History Traveled to [place] past 21 day No Medical History Any Pertinent Medical History? 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 Cardiovascular: hypertension Respiratory: emphysema Gastrointestinal: GERD Hepatic: NONE Renal: benign prost hyperplasia Musculoskeletal: osteoporosis, CHRONIC PAIN Psychiatric: anxiety Endocrine: NONE Blood Disorders: NONE Cancer(s): NONE FAMILY SERVICES SPECIALIST/Reproductive: NONE History of MRSA: No History of VRE: No History of CDIFF: No Surgical History Surgical History: cataract removal Psychosocial History Who do you live with Patient/Self Services at Home None What is your primary language Bulgarian Tobacco Use: Quit >30 days ago ETOH Use: denies use Illicit Drug Use: denies illicit drug use Family History Family History, If Any: Relation not specified for: *No pertinent family history Hx Contributory? No ([place] Fernandez) Review of Systems Review of Systems Constitutional: Reports: see HPI. Comments Review of systems: See HPI, All other systems negative. Constitutional, no chills no fever, HEENT: no sore throat no congestion, Cardiovascular: No chest pain , no palpitation Skin: no rashes, no change in skin Respiratory: No dyspnea no cough no sputum no hemoptysis GI: No nausea no vomiting, no diarrhea, no bloating/constipation : No dysuria Muscle skeletal: No joint pain, no back pain, no neck pain, Neurologic: , no headache Psych: No stress Heme/endocrine: No bruising Immunology: No lymphadenopathy ([place] Fernandez) Physical Exam Physical Exam General Appearance: well developed/nourished, no apparent distress, alert, awake , comfortable Comments: Well-developed well-nourished person in no acute distress HEENT: Normal EENT exam; PERRL, EOMI, HEAD is atraumatic. moist mucous membranes. Neck: Supple, normal range of motion Back: Full range of motion Cardiovascular: Regular rate and rhythms no murmurs Respiratory: No respiratory distress. Patient speaking in full complete sentences. Breath sounds clear to auscultation bilaterally: NO W/R/R Abdomen: Soft, nontender nondistended Extremity: No edema, full range of motion of extremities Neuro: Alert oriented x3, motor sensory normal, There were no obvious focal neurologic abnormalities. Skin: No appreciable rash on exposed skin, skin is warm and dry. Psych: Mood and affect is normal, memory and judgment is normal. Core Measures ACS in differential dx? No CVA/TIA Diagnosis No Sepsis Present: No Sepsis Focused Exam Completed? No ([place] Fernandez) Progress Differential Diagnosis: arrythmia, benign positional vertigo, CVA/stroke, vertebrobasilar insuff, dehydartion, electrolyte abnormality, mediaction adverse effect Plan of Care: Current Medications Sig/Buddy Start time Last Medication Dose Stop Time Status Admin Oxycodone/ 1 TAB ONCE ONE 07/22 2144 UNVr 07/22 Acetaminophen 07/22 (Percocet) Patient requesting Percocet he is due to take, we'll continue to monitor patient is resting in no apparent distress she's been seen numerous times in the past for similar complaints. Believe it is a reaction side effect to the prednisone she is in agreement with 2300 on repeat eval pt reports to feeling improved. 0035 repeat evaluation patient resting in no acute distress currently sleeping 100 [address] ambulatory around the er with steady gait, however reports to still feeling dizzy 140 pt sleeping in nad, denies dizziness, pt requesting to sleep here until 4am so he can go get [facility]. d/w that this is an emergency dept and we need the space Initial ED EKG: none ([place] Fernandez) Departure Departure Time of Disposition: 134 Disposition: HOME OR SELF CARE Condition: Stable Clinical Impression Primary Impression: Adverse reaction to drug Referrals: Luis A CHAPPELL,Delma (PCP/Family) Additional Instructions: benadryl if needed. continue taking your medication as prescribed. return with any concerns Departure Forms: Customer Survey General Discharge Information ([place]odi Fernandez) PA/SHIPWRIGHT HELPER Co-Sign Statement Statement: ED Attending supervision documentation- [X] I saw and evaluated the patient. I have also reviewed all the pertinent lab results and diagnostic results. I agree with the findings and the plan of care as documented in the PA's/SHIPWRIGHT HELPER's documentation. Patient presented for evaluation of dizziness. Physical examination reveals a nonfocal neurologic examination stable gait. [] I have reviewed the ED Record and agree with the PA's/SHIPWRIGHT HELPER's documentation. [] Additions or exceptions (if any) to the PAs/SHIPWRIGHT HELPER's note and plan are summarized below: [] (Brina CHAPPELL,Tomás Martin)
[2017-07-23 01:50] VITALS: BP 139/82
== END 2017-07-23 01:58 ==
LOC: ERH 19:30
DX: T38.0X5A Adverse effect of glucocorticoids and synthetic analogues, initial encounter (principal)

== ENCOUNTER 2017-10-13 22:32 | Emergency (ER) | payer OTHER, MEDICARE ==
[~2017-10-13] VITALS: Ht 172.7 cm; Wt 65.3 kg
[~2017-10-13 22:32] MED LIST changes: +AUGMENTIN 875-1 EACH PO; +FLUTICASONE PRO16 GM NASB; +MONTELUKAST SOD10 M1 PO
--- NOTE | 2017-10-13 23:07 | ED GENERAL ADULT ---
History of Present Illness General Chief Complaint: Chest Pain Stated Complaint: CP, DIFF BREATHING Source: patient Exam Limitations: no limitations Vital Signs & Intake/Output Vital Signs & Intake/Output Vital Signs Date Time Temp Pulse Resp B/P B/P Pulse O2 O2 Flow FiO2 Mean Ox Delivery Rate 10/14 0336 97.1 66 18 148/85 98 Room Air 10/14 0208 97.2 70 18 144/83 98 Room Air 10/14 0053 Room Air 10/13 2240 96.8 69 18 163/93 97 ED Intake and Output 10/14 0000 10/13 1200 Intake Total Output Total Balance Patient 144 lb Weight Allergies Coded Allergies: Iodinated Contrast- Oral and IV Dye (IODINATED CONTRAST MEDIA - IV DYE) (MAKES ME SICK FOR DAYS PER PT 08/01/17) hydromorphone (Mild, DIZZINESS AND ITCHINESS 08/01/17) Reconcile Medications Acetaminophen (Tylenol Extra Strength) 500 MG TABLET 1-2 TAB PO DAILY PAIN ( Reported) Albuterol Sulfate (Ventolin Hfa) 90 MCG HFA.AER.AD 2 PUF INH Q4-6 PRN PRN SHORTNESS OF BREATH (Reported) Budesonide/Formoterol Fumarate (Symbicort 160-4.5 Mcg Inhaler) 160 MCG-4.5 MCG/ ACTUATION HFA.AER.AD 2 PUF INH BID SHORTNESS OF BREATH (Reported) Clonazepam 0.5 MG TABLET 2 TAB PO DAILY ANXIETY (Reported) Fluticasone Propionate 50 MCG/ACTUATION SPRAY.SUSP 1 SPRAY NASB DAILY ALLERGIES (Reported) Montelukast Sodium 10 MG TABLET 1 TAB PO DAILY ALLERGIES/COPD (Reported) Oxycodone HCl/Acetaminophen (Oxycodone-Acetaminophen 10-325) 10 MG-325 MG TABLET 1 TAB PO 4XDP PRN PAIN (Reported) Ranitidine HCl 300 MG TABLET 1 TAB PO QPM GI (Reported) Tamsulosin HCl 0.4 MG CAP.ER.24H 1 CAP PO DAILY PROSTATE (Reported) Triage Note: PT TO TRIAGE C/O BURNING SENSATION IN CHEST AND TROUBLE BREATHING. 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 STATES "I'VE HAD THIS PROBLEM A WHILE, I CAN'T SHAKE IT." SPEAKING IN CLEAR SENTENCE. Triage Nurses Notes Reviewed? yes Onset: Gradual Duration: day(s): Timing: recent history Injury Environment: home Severity: moderate Modifying Factors: Worsens With: movement. Associated Symptoms: WORSE WITH PALPATION HPI: 72 YO gentleman h/o chest pain, h/o copd presents with 1-2 days of right sided chest wall pain, worse with palpation. He notes no radiation, diaphoresis, syncopal symptoms. He notes this is similar to his prior episodes of chest pain. He is otherwise well. Past History Travel History Traveled to [place] past 21 day No Medical History Any Pertinent Medical History? 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 No Review of Systems Review of Systems Constitutional: Reports: no symptoms. EENTM: Reports: no symptoms. Respiratory: Reports: no symptoms. Cardiovascular: Reports: no symptoms. GI: Reports: no symptoms. Genitourinary: Reports: no symptoms. Musculoskeletal: Reports: no symptoms. Skin: Reports: no symptoms. Neurological/Psychological: Reports: no symptoms. Hematologic/Endocrine: Reports: no symptoms. Immunologic/Allergic: Reports: no symptoms. All Other Systems: Reviewed and Negative Physical Exam Physical Exam General Appearance: well developed/nourished, no apparent distress Head: atraumatic, normal appearance Eyes: Bilateral: normal appearance. Ears, Nose, Throat: normal pharynx, normal ENT inspection Neck: normal inspection, supple, full range of motion Respiratory: normal breath sounds, no respiratory distress, right sided chest wall tenderness to palpation Cardiovascular: regular rate/rhythm Gastrointestinal: normal bowel sounds, soft, non-tender Back: normal inspection, normal range of motion Extremities: normal inspection, normal capillary refill, normal range of motion, no edema Neurologic/Psych: no motor/sensory deficits, awake, alert, oriented x 3 Skin: intact, normal color, warm/dry Core Measures ACS in differential dx? No CVA/TIA Diagnosis: No Sepsis Present: No Sepsis Focused Exam Completed? No Progress Differential Diagnoses I considered the following diagnoses in my evaluation of the patient: chest wall pain. I doubt angia, PE... multiple prior evaluations have been negative in the past. Plan of Care: Orders Procedure Date/time Status TROPONIN LEVEL 10/15 147 Complete COMPREHENSIVE METABOLIC PANEL 10/15 147 Complete CBC WITHOUT DIFFERENTIAL 10/15 147 Complete EKG 10/13 2238 Active Laboratory Tests 10/14/17 0156: Anion Gap 13, Estimated GFR > 60, BUN/Creatinine Ratio 18.6, Glucose 87, Calcium 9.6, Total Bilirubin 0.9, AST 19, ALT 26, Alkaline Phosphatase 67, Troponin I < 0.01, Total Protein 7.2, Albumin 4.2, Globulin 3.0, Albumin/Globulin Ratio 1.4, CBC w Diff NO MAN DIFF REQ, RBC 5.42, MCV 88.4, MCH 30.5, MCHC 34.5, RDW 13.2, MPV 8.8, Gran % 63.3, Lymphocytes % 25.0, Monocytes % 8.3, Eosinophils % 2.9, Basophils % 0.5, Absolute Granulocytes 4.9, Absolute Lymphocytes 1.9, Absolute Monocytes 0.6, Absolute Eosinophils 0.2, Absolute Basophils 0 Diagnostic Imaging: Viewed by Me: CT Scan. Discussed w/RAD: CT Scan. Radiology Impression: PATIENT: OG PATEL PRESENT AGE: 72 PATIENT ACCOUNT NO: [id number] : 43 LOCATION: [facility] ORDERING PHYSICIAN: Urmila Real APRN SERVICE DATE: 09/28/17 EXAM TYPE: CAT - LDCT GROUP 1 EXAMINATION: LOW-DOSE SCREENING CT CHEST WITHOUT CONTRAST CLINICAL INFORMATION: Annual low-dose screening CT scan in a high risk patient with 56 pack year history of smoking. Patient stopped smoking 3 years ago. COPD. 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 COMPARISON: CT scan of the chest dated 2015 and 09/17/2013. CT scan of the abdomen and pelvis dated 06/03/2015. TECHNIQUE: Multidetector volumetric non-contrast CT imaging of the chest was obtained on a SinDelantal.[id number] 128 slice scanner using low dose screening CT technique. Axial thin section 0.625 mm reformations in soft tissue and lung windows were obtained. Sagittal and coronal reformations were obtained. Axial MIP images were also created and reviewed. RECONSTRUCTED WIDTH: 1.25 mm x1.25 mm TOTAL EXAM DLP: 102.40 mGy-cm. CTDIvol: 2.39 mGy. FINDINGS: LUNGS: Moderate centrilobular and paraseptal emphysema. Several calcified granulomas again noted in the lungs bilaterally, unchanged. There are also multiple bilateral solid noncalcified 2 to 4 mm pulmonary nodules, the majority of which are unchanged. A few of the nodules are new as follows: 1. Peripheral 2 mm solid noncalcified nodule in the right upper lobe (series 4, image 218). 2. Central 2 mm solid noncalcified nodule in the right lower lobe (series 4, image 280). 3. Peripheral 2 mm solid noncalcified nodule in the right lower lobe, adjacent to the fissure (series 4, image 327). 4. Peripheral 4 mm solid noncalcified nodule in left lower lobe (series 4, image 278). There is some increasing peripheral opacity in the medial segment of the right middle lobe (series 4, image 383), consistent with atelectasis with minimal associated traction bronchiectasis. No effusion or pneumothorax. Central airways are diffusely thickened and mildly ectatic. A small posterior medial left-sided Bochdalek type hernia is seen with herniation of abdominal fat only. LYMPHATIC STRUCTURES: No mediastinal, hilar or axillary adenopathy or free fluid collection. THYROID GLAND: Unremarkable to the extent seen. CARDIOVASCULAR STRUCTURES: Aortic and heart size normal. Moderate aortic and coronary artery calcifications. No pericardial effusion. UPPER ABDOMEN: There is a 1.2 cm fluid attenuation mass in the lower pole of the right kidney ( series 2, image 70), similar to 06/03/2015. Included portions of the solid organs in the upper abdomen unremarkable on noncontrast imaging. OSSEOUS STRUCTURES: Mild degenerative changes in the right shoulder and mild vertebral spondylosis in the mid and lower thoracic spine. No suspicious focal findings. IMPRESSION: 1. Moderate emphysema with multiple scattered bilateral solid calcified and noncalcified pulmonary nodules again seen, majority of which are unchanged. There are 4 tiny 2 to 4 mm solid noncalcified nodules in the right upper lobe, right lower lobe, and left lower lobe, which are new when compared to the prior exam. These are probably benign. Six-month follow-up low-dose screening CT scan is recommended for reassessment. 2. Moderate coronary artery calcifications. 3. Small right renal cyst. Lung-RADS CATEGORY Lung RADS category: 3S. Probably benign. Probably benign findings, including nodules with a low likelihood of becoming a clinically active cancer. Recommend 6 month followup low-dose CT scan. Probability of malignancy 1 to 2%. Other clinically significant or potentially clinically significant findings (non lung cancer). Management as appropriate to the specific finding. INCIDENTAL FINDINGS (S CATEGORY): Moderate emphysema. Clinically significant. Pursue further work up/ management as per accepted practice guidelines. Moderate coronary artery calcifications. Variable clinical significance. Pursue further work up/ management as per accepted practice guidelines. RECOMMENDATION: 1. Follow-up low-dose screening CT scan in 6 months is recommended to reassess the new nodules in both lungs detailed above. 2. Management of other potentially clinically significant findings (non lung cancer) as clinically appropriate. DICTATED BY: Antonia Pan MD DATE/TIME DICTATED:09/30/17741 HISTOLOGY TECHNOLOGIST:RJ DATE/TIME TRANSCRIBED:09/30/17741 CONFIDENTIAL, DO NOT COPY WITHOUT APPROPRIATE AUTHORIZATION. <Electronically signed in Other Vendor System> SIGNED BY: Antonia Pan MD 10/01/17 0635 Initial ED EKG: no acute change from prior Departure Departure Disposition: HOME OR SELF CARE Condition: Stable Clinical Impression Primary Impression: Chest wall pain Referrals: Delma Gunn MD (PCP/Family) Departure Forms: Customer Survey General Discharge Information Comments 10/14/17, 3:30am... pt feeling better after toradol and percocet 1 tab x 1... labs benign... multiple workups in the past have been negative... pt safe for discharge... he asks to sleep until 6am. - - at discharge, pt well appearing, labs benign, close follow up encouraged. Critical Care Note Critical Care Note Critical Care Time: non-applicable
[2017-10-14 02:15] LABS: ABSOLUTE BASOPHIL COUNT 0 /CUMM (0.0-0.2); ABSOLUTE EOSINOPHIL COUNT 0.2 /CUMM (0.0-0.7); ABSOLUTE GRANULOCYTE CT 4.9 /CUMM (1.4-6.5); ABSOLUTE LYMPH COUNT 1.9 /CUMM (1.2-3.4); ABSOLUTE MONOCYTE COUNT 0.6 /CUMM (0.10-0.60); BASOPHIL % 0.5 % (0.0-2.0); EOSINOPHIL % 2.9 % (0-5); GRANULOCYTE % 63.3 % (42.2-75.2); HEMATOCRIT 47.9 % (42-52); MEAN CORPUSCULAR HGB 30.5 PG (27.0-31.0); MEAN CORPUSCULAR HGB CONC 34.5 G/DL (33.0-37.0); MEAN CORPUSCULAR VOLUME 88.4 FL (80.0-94.0); MEAN PLATELET VOLUME 8.8 FL (7.4-10.4); PLATELET COUNT 274 /CUMM (130-400); RBC DISTRIBUTION WIDTH 13.2 % (11.5-14.5); RED BLOOD CELL CT 5.42 /CUMM (4.70-6.10); WHITE BLOOD CELL COUNT 7.7 /CUMM (4.8-10.8)
[2017-10-14 03:36] VITALS: BP 148/85
== END 2017-10-14 03:36 ==
LOC: ERH 22:32
PROVIDERS: Pediatrics
DX: R07.89 Other chest pain (principal)
CPT/HCPCS: 93005; 93010; 96372; J1885

== ENCOUNTER 2017-11-13 11:04 | Emergency (ER) | payer OTHER, MEDICARE ==
[~2017-11-13] VITALS: Ht 172.7 cm; Wt 65.8 kg
--- NOTE | 2017-11-13 11:22 | ED CARDIAC/CP/PALPITATIONS ---
History of Present Illness General Chief Complaint: Dyspnea (COPD, CHF, Other) Stated Complaint: WESLEY/SOB/LEFT FLANK PAIN Source: patient Exam Limitations: no limitations Vital Signs & Intake/Output Vital Signs & Intake/Output Vital Signs Date Time Temp Pulse Resp B/P B/P Pulse O2 O2 Flow FiO2 Mean Ox Delivery Rate 11/13 1420 98.0 68 20 164/82 97 Room Air 11/13 1200 Room Air 11/13 1108 96.4 69 20 181/91 96 Room Air Allergies Coded Allergies: Iodinated Contrast- Oral and IV Dye (IODINATED CONTRAST MEDIA - IV DYE) (MAKES ME SICK FOR DAYS PER PT 10/31/17) hydromorphone (Mild, DIZZINESS AND ITCHINESS 10/31/17) Reconcile Medications Acetaminophen (Tylenol Extra Strength) 500 MG TABLET 1-2 TAB PO DAILY PAIN ( Reported) Albuterol Sulfate (Ventolin Hfa) 90 MCG HFA.AER.AD 2 PUF INH Q4-6 PRN PRN SHORTNESS OF BREATH (Reported) Budesonide/Formoterol Fumarate (Symbicort 160-4.5 Mcg Inhaler) 160 MCG-4.5 MCG/ ACTUATION HFA.AER.AD 2 PUF INH BID SHORTNESS OF BREATH (Reported) Butalb/Acetaminophen/Caffeine (Zebutal 50-325-40 MG Capsule) 50 MG-325 MG-40 MG CAPSULE 1 TAB PO TID PRN MIGRAINE Clonazepam 0.5 MG TABLET 2 TAB PO DAILY ANXIETY (Reported) Fluticasone Propionate 50 MCG/ACTUATION SPRAY.SUSP 1 SPRAY NASB DAILY ALLERGIES (Reported) Montelukast Sodium 10 MG TABLET 1 TAB PO DAILY ALLERGIES/COPD (Reported) Oxycodone HCl/Acetaminophen (Oxycodone-Acetaminophen 10-325) 10 MG-325 MG TABLET 1 TAB PO 4XDP PRN PAIN (Reported) Ranitidine HCl 300 MG TABLET 1 TAB PO QPM GI (Reported) Tamsulosin HCl 0.4 MG CAP.ER.24H 1 CAP PO DAILY PROSTATE (Reported) Triage Note: PRESENTS TO ED REPORTING HEADACHE X 4 DAYS, DIFF BREATHING, PAIN ON HIS LEFT UPPER RIB CAGE AND ALSO REPORTS DIZZINES. HE WAS STARTED ON LOSARTAN RECENTLY AND SINCE HE HAS NOT FELT "NORMAL". Triage Nurses Notes Reviewed? 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 Denies any fever chills arm pain jaw pain nausea vomiting hemoptysis leg swelling anterior chest pain cough Denies any acute onset or thunderclap headache Patient has been taking Percocet for his headaches with relief (Kodi Cohen) Past History Travel History Traveled to [place] past 21 day No Medical History Any Pertinent Medical History? 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 No (Kodi Cohen) Review of Systems Review of Systems Constitutional: Reports: no symptoms. EENTM: Reports: no symptoms. Respiratory: Reports: see HPI. Cardiovascular: Reports: see HPI. GI: Reports: no symptoms. Genitourinary: Reports: no symptoms. Musculoskeletal: Reports: no symptoms. Skin: Reports: no symptoms. Neurological/Psychological: Reports: see HPI. Hematologic/Endocrine: Reports: no symptoms. Immunologic/Allergic: Reports: no symptoms. All Other Systems: Reviewed and Negative (Kodi Cohen) Physical Exam Physical Exam General Appearance: no apparent distress, alert, comfortable Head: atraumatic Eyes: Bilateral: normal appearance, PERRL, EOMI. 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 No CVA/TIA Diagnosis No Sepsis Present: No Sepsis Focused Exam Completed? No (Leatha DELANEY,Kodi) Progress Differential Diagnosis: AMI, aortic dissection, atrial fibrillation, cholecystitis, CHF/pulm edema, costochondritis, hyperkalemia, hypovolemia, hyperthyroid, hyperventilation, intracranial hemorrhage, musculoskeletal pain, myocarditis, pancreatitis, pericarditis, pneumonia, pneumothorax, PSVT, pulmonary embolism, PUD/GERD, PVCs/PACs, respiratory failure, rib fracture, sepsis, unstable angina, V-fib/V-Tach, WPW syndrome Plan of Care: Orders Procedure Date/time Status TROPONIN LEVEL 11/13 1122 Complete COMPREHENSIVE METABOLIC PANEL 11/13 1122 Complete CBC WITHOUT DIFFERENTIAL 11/13 112 Complete EKG 11/13 1105 Active Laboratory Tests 11/13/17 1138: Anion Gap 8, Estimated GFR > 60, BUN/Creatinine Ratio 13.3, Glucose 83, Calcium 9.0, Total Bilirubin 0.6, AST 21, ALT 24, Alkaline Phosphatase 56, Troponin I < 0.01, Total Protein 6.4, Albumin 3.6, Globulin 2.8, Albumin/Globulin Ratio 1.3, CBC w Diff NO MAN DIFF REQ, RBC 5.19, MCV 89.2, MCH 30.1, MCHC 33.7, RDW 13.9, MPV 8.4, Gran % 65.4, Lymphocytes % 25.2, Monocytes % 6.6, Eosinophils % 2.5, Basophils % 0.3, Absolute Granulocytes 4.9, Absolute Lymphocytes 1.9, Absolute Monocytes 0.5, Absolute Eosinophils 0.2, Absolute Basophils 0 Differential diagnosis includes subarachnoid hemorrhage, subdural hemorrhage ICH hypertensive urgency or emergency Patient on initial presentation is resting comfortably but they clear lungs auscultation patient is fixated on an adverse reaction from the losartan due to his symptoms and which I advised patient to follow up with his primary care doctor however he states that "she doesn't have typed me", patient seemingly is frustrated with his primary care doctor where he will follow-up with Pillo Brown MD. Patient requested to discontinue his losartan Cranial nerves intact No emergent necessity warranting of CT scan imaging No concerns of hypertensive urgency or emergency. Diagnostic Imaging: Viewed by Me: Radiology Read. CXR Impression: no acute abnormality, no infiltrates Initial ED EKG: normal intervals, normal p-waves, normal QRS complex, 60 BPM,NSR Comments: PATIENT: OG PATEL PRESENT AGE: 72 PATIENT ACCOUNT NO: [id number] : 43 LOCATION: [facility] ORDERING PHYSICIAN: Kodi DELANEY SERVICE DATE: 11/13/17120 EXAM TYPE: RAD - XRY-CHEST XRAY, TWO VIEWS EXAMINATION: XR CHEST CLINICAL INFORMATION: Shortness of breath and left rib pain. COMPARISON: Previous chest x-ray most recent August [address] most recent September 2017. TECHNIQUE: 2 views of the chest were obtained. FINDINGS: The cardiac and mediastinal contours are stable. The lungs are well inflated suggestive of COPD. The lungs are clear. The small pulmonary nodules seen by CT are not appreciated by chest x-ray. There is no pleural effusion or pneumothorax. There are mild degenerative changes of the spine. IMPRESSION: Well-inflated lungs. No evidence for acute disease in the chest. DICTATED BY: Jocelyne Goel MD DATE/TIME DICTATED:11/13/171241 LOGISTICS PROGRAM MANAGER:RJ DATE/TIME TRANSCRIBED:11/13/171241 (Kodi Cohen) Departure Departure Disposition: HOME OR SELF CARE Condition: Stable Clinical Impression Primary Impression: Headache Secondary Impressions: Adverse drug event Referrals: Delma Gunn MD (PCP/Family) Stephanie CHAPPELL,Jenaro Additional Instructions: As discussed please follow-up and established your new doctor, Pillo Brown MD for further evaluation treatment. If symptoms worsen or if YOU develop any new concerning symptom return to emergency ROOM, begin the prescription of ZEBUTAL for migraine relief, Departure Forms: Customer Survey General Discharge Information Prescriptions: Current Visit Scripts Butalb/Acetaminophen/Caffeine (Zebutal 50-325-40 MG Capsule) 1 TAB PO TID PRN MIGRAINE #12 TAB (Kodi Cohen) PA/HIGH SCHOOL DRAFTING TEACHER Co-Sign Statement Statement: ED Attending supervision documentation- x I saw and evaluated the patient. I have also reviewed all the pertinent lab results and diagnostic results. I agree with the findings and the plan of care as documented in the PA's/HIGH SCHOOL DRAFTING TEACHER's documentation. [] I have reviewed the ED Record and agree with the PA's/HIGH SCHOOL DRAFTING TEACHER's documentation. [] Additions or exceptions (if any) to the PAs/HIGH SCHOOL DRAFTING TEACHER's note and plan are summarized below: [] (Russell CHAPPELL,Noel) Critical Care Note Critical Care Note Critical Care Time: non-applicable (Leatha DELANEY,Kodi)
[2017-11-13 11:48] LABS: ABSOLUTE BASOPHIL COUNT 0 /CUMM (0.0-0.2); ABSOLUTE EOSINOPHIL COUNT 0.2 /CUMM (0.0-0.7); ABSOLUTE GRANULOCYTE CT 4.9 /CUMM (1.4-6.5); ABSOLUTE LYMPH COUNT 1.9 /CUMM (1.2-3.4); ABSOLUTE MONOCYTE COUNT 0.5 /CUMM (0.10-0.60); BASOPHIL % 0.3 % (0.0-2.0); EOSINOPHIL % 2.5 % (0-5); GRANULOCYTE % 65.4 % (42.2-75.2); HEMATOCRIT 46.3 % (42-52); MEAN CORPUSCULAR HGB 30.1 PG (27.0-31.0); MEAN CORPUSCULAR HGB CONC 33.7 G/DL (33.0-37.0); MEAN CORPUSCULAR VOLUME 89.2 FL (80.0-94.0); MEAN PLATELET VOLUME 8.4 FL (7.4-10.4); PLATELET COUNT 247 /CUMM (130-400); RBC DISTRIBUTION WIDTH 13.9 % (11.5-14.5); RED BLOOD CELL CT 5.19 /CUMM (4.70-6.10); WHITE BLOOD CELL COUNT 7.6 /CUMM (4.8-10.8)
--- NOTE | 2017-11-13 13:57 | RADIOLOGY REPORT ---
EXAMINATION: XR CHEST CLINICAL INFORMATION: Shortness of breath and left rib pain. COMPARISON: Previous chest x-ray most recent August [address] most recent September 2017. TECHNIQUE: 2 views of the chest were obtained. FINDINGS: The cardiac and mediastinal contours are stable. The lungs are well inflated suggestive of COPD. The lungs are clear. The small pulmonary nodules seen by CT are not appreciated by chest x-ray. There is no pleural effusion or pneumothorax. There are mild degenerative changes of the spine. IMPRESSION: Well-inflated lungs. No evidence for acute disease in the chest.
[2017-11-13 14:20] VITALS: BP 164/82
[2017-11-13] MEDS ORDERED: ZEBUTAL 50-3251 EACH PO (14:40)
== END 2017-11-13 14:50 ==
LOC: ERH 11:04
PROVIDERS: Physician Assistant
DX: R42 Dizziness and giddiness (principal); R51 Headache; R06.02 Shortness of breath; R07.81 Pleurodynia; T50.905A Adverse effect of unspecified drugs, medicaments and biological substances, initial encounter
CPT/HCPCS: 71046; 93005; 93010

== ENCOUNTER 2017-12-03 17:35 | Emergency (ER) | payer OTHER, MEDICARE ==
[~2017-12-03 17:35] MED LIST changes: +ZEBUTAL 50-3251 EACH PO
[2017-12-03 17:43] VITALS: BP 162/79
--- NOTE | 2017-12-03 18:31 | ED SKIN/ALLERGY COMPLAINT ---
History of Present Illness General Chief Complaint: General Adult Stated Complaint: PT IS HAVING A REACTION TO INHALER Source: patient Exam Limitations: no limitations Vital Signs & Intake/Output Vital Signs & Intake/Output Vital Signs Date Time Temp Pulse Resp B/P B/P Pulse O2 O2 Flow FiO2 Mean Ox Delivery Rate 12/03 1743 97.0 79 18 162/79 97 Room Air Allergies Coded Allergies: Iodinated Contrast- Oral and IV Dye (IODINATED CONTRAST MEDIA - IV DYE) (MAKES ME SICK FOR DAYS PER PT 10/31/17) hydromorphone (Mild, DIZZINESS AND ITCHINESS 10/31/17) Triage Note: 72M USED NEBULIZER AFTER IT SAT IN HIS CAR FOR 6 MONTHS. NOW C/O ITCHING AND "LINES" ON HIS ARMS. NONE OBSERVED, BUT SKIN APPEARS DRY AND FLAKEY. Triage Nurses Notes Reviewed? yes Onset: Abrupt Duration: day(s): Timing: recent history No Modifying Factors: none HPI: 72-year-old male comes into the emergency room for further evaluation of lines on his skin that he feels are a reaction to his albuterol solution. The albuterol solution is about 6 months old that he reports that he was in the car all winter. He reports that he feels that there is lines on his skin. Itching. Denies any redness. Denies any tongue swelling. Comes in for further evaluation. (Rico Rosa) Reconcile Medications Acetaminophen (Tylenol Extra Strength) 500 MG TABLET 1-2 TAB PO DAILY PAIN ( Reported) Albuterol Sulfate (Ventolin Hfa) 90 MCG HFA.AER.AD 2 PUF INH Q4-6 PRN PRN SHORTNESS OF BREATH (Reported) Budesonide/Formoterol Fumarate (Symbicort 160-4.5 Mcg Inhaler) 160 MCG-4.5 MCG/ ACTUATION HFA.AER.AD 2 PUF INH BID SHORTNESS OF BREATH (Reported) Butalb/Acetaminophen/Caffeine (Zebutal 50-325-40 MG Capsule) 50 MG-325 MG-40 MG CAPSULE 1 TAB PO TID PRN MIGRAINE Clonazepam 0.5 MG TABLET 2 TAB PO DAILY ANXIETY (Reported) Fluticasone Propionate 50 MCG/ACTUATION SPRAY.SUSP 1 SPRAY NASB DAILY ALLERGIES (Reported) Hydrochlorothiazide 25 MG TABLET 1 TAB PO DAILY WATER RETENTION (Reported) Hydroxyzine HCl (hydrOXYzine HCl) 25 MG TABLET 1 TAB PO TID ITCHING Losartan Potassium 50 MG TABLET 1 TAB PO DAILY HEART (Reported) Meclizine HCl 25 MG TABLET 1 TAB PO TIDPRN PRN DIZZINESS Montelukast Sodium 10 MG TABLET 1 TAB PO DAILY ALLERGIES/COPD (Reported) Oxycodone HCl/Acetaminophen (Oxycodone-Acetaminophen 10-325) 10 MG-325 MG TABLET 1 TAB PO 4XDP PRN PAIN (Reported) Ranitidine HCl 300 MG TABLET 1 TAB PO QPM GI (Reported) Scopolamine (Transderm-Scop) 1 MG/3 DAY PATCH.TD.3 1 PAT AD AD PRN DIZZINESS APPLY BEHIND EAR FOR DIZZINESS EVERY THREE DAYS Tamsulosin HCl 0.4 MG CAP.ER.24H 1 CAP PO DAILY PROSTATE (Reported) Umeclidinium Brm/Vilanterol Tr (Anoro Ellipta 62.5-25 Mcg INH) 62.5 MCG-25 MCG/ ACTUATION BLST.W.DEV BREATHING PROBLEMS (Reported) (Brina CHAPPELL,Tomás Martin) Past History Travel History Traveled to [place] past 21 day No Medical History Any Pertinent Medical History? 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 Cardiovascular: hypertension Respiratory: emphysema Gastrointestinal: GERD Hepatic: NONE Renal: benign prost hyperplasia Musculoskeletal: osteoporosis, CHRONIC PAIN Psychiatric: anxiety Endocrine: NONE Blood Disorders: NONE Cancer(s): NONE TURNTABLE ENGINEER/Reproductive: NONE History of MRSA: No History of VRE: No History of CDIFF: No Surgical History Surgical History: cataract removal Psychosocial History Who do you live with Patient/Self Services at Home None What is your primary language Ukrainian Tobacco Use: Refused to answer Family History Family History, If Any: Relation not specified for: *No pertinent family history Hx Contributory? No (Rico Rosa) Review of Systems Review of Systems Constitutional: Reports: no symptoms. EENTM: Reports: no symptoms. Respiratory: Reports: no symptoms. Cardiovascular: Reports: no symptoms. GI: Reports: no symptoms. Genitourinary: Reports: no symptoms. Musculoskeletal: Reports: no symptoms. Skin: Reports: see HPI. Neurological/Psychological: Reports: no symptoms. Hematologic/Endocrine: Reports: no symptoms. Immunologic/Allergic: Reports: no symptoms. All Other Systems: Reviewed and Negative (Rico Rosa) Physical Exam Physical Exam General Appearance: well developed/nourished, mild distress Head: atraumatic Eyes: Bilateral: normal appearance. Ears, Nose, Throat: normal ENT inspection, hearing grossly normal Neck: normal inspection Respiratory: no respiratory distress Back: normal inspection Extremities: normal inspection, normal range of motion, no edema Neurologic/Psych: awake, alert, oriented x 3, normal mood/affect Skin: intact, No rash appreciated, some mild diffuse dry skin Skin Problem Location: generalized (Rico Rosa) Progress Differential Diagnosis: allergic reaction, anaphylaxis, contact dermatitis, drug reaction Plan of Care: 12/03/2017 7:25:03 PM Patient clinically looks well. In no apparent distress. Patient appears to have just some dry skin and was told to use lotions and was prescribed hydroxyzine for the itching. (Rico Rosa) Departure Departure Disposition: HOME OR SELF CARE Condition: Stable Clinical Impression Primary Impression: Dry skin dermatitis Referrals: Delma Gunn MD (PCP/Family) Additional Instructions: business support associate [id number] emollients for your arms and back. Take hydroxyzine as prescribed. Return if any concerns worsening symptoms. Please go over all results of today's visit with your primary care doctor. Contact your primary care doctor to let them know you were here in the emergency room. There may be nonspecific findings which may not be related to your visit today here in the emergency room but may require further evaluation and chronic monitoring by your primary care doctor. If you had a laceration today the chance of foreign body always remains. You should follow-up with your primary care doctor for recheck in 3-5 days for a wound check. If you had an x-ray done there is a chance that a fracture could have been missed on initial read and you should follow-up with your primary care doctor for repeat x-rays if symptoms persist. If your blood pressure was elevated here in the emergency room please have rechecked by [facility] primary care doctor within the next 48. If you were prescribed a narcotic here in the emergency room or any type of controlled substances you're not allowed to drive while taking this medication or operate any type of heavy machinery. Narcotics can make you feel lightheaded dizziness nausea and can cause constipation. You may need to picker box operator a stool softener. Thank you for choosing [facility] emergency room. Please return to the emergency room immediately if you have any other concerns worsening of symptoms. Departure Forms: Customer Survey General Discharge Information Prescriptions: Current Visit Scripts Hydroxyzine HCl (hydrOXYzine HCl) 1 TAB PO TID #20 TAB (Rico Rosa) PA/FLEXIBLE MACHINING SYSTEM MACHINIST Co-Sign Statement Statement: ED Attending supervision documentation- [X] I saw and evaluated the patient. I have also reviewed all the pertinent lab results and diagnostic results. I agree with the findings and the plan of care as documented in the PA's/FLEXIBLE MACHINING SYSTEM MACHINIST's documentation. Patient presents for evaluation of possible medication reaction. Physical examination reveals a comfortable appearing gentleman who is conversant with a nonfocal neurologic examination. No apparent rashes or respiratory distress. [] I have reviewed the ED Record and agree with the PA's/FLEXIBLE MACHINING SYSTEM MACHINIST's documentation. [] Additions or exceptions (if any) to the PAs/FLEXIBLE MACHINING SYSTEM MACHINIST's note and plan are summarized below: [] (Brina CHAPPELL,Tomás Martin)
[2017-12-03] MEDS ORDERED: HYDROXYZINE HCL25 M3 PO (18:33)
== END 2017-12-03 18:57 ==
LOC: ERH 17:35
DX: L85.3 Xerosis cutis (principal)

== ENCOUNTER 2017-12-06 11:31 | Emergency (ER) | payer OTHER, MEDICARE ==
[~2017-12-06] VITALS: Ht 172.7 cm; Wt 65.8 kg
[~2017-12-06 11:31] MED LIST changes: +HYDROXYZINE HCL25 M3 PO
--- NOTE | 2017-12-06 12:06 | ED DYSPNEA/ASTHMA COMPLAINT ---
History of Present Illness General Chief Complaint: Dyspnea (COPD, CHF, Other) Stated Complaint: SOB Source: patient Exam Limitations: no limitations Vital Signs & Intake/Output Vital Signs & Intake/Output Vital Signs Date Time Temp Pulse Resp B/P B/P Pulse O2 O2 Flow FiO2 Mean Ox Delivery Rate 12/06 1400 98.3 70 17 138/85 98 Room Air 12/06 1137 98.4 81 18 144/88 96 Room Air ED Intake and Output 12/07 0000 12/06 1200 Intake Total Output Total Balance Patient 145 lb Weight Weight Reported by Patient Measurement Method Allergies Coded Allergies: Iodinated Contrast- Oral and IV Dye (IODINATED CONTRAST MEDIA - IV DYE) (MAKES ME SICK FOR DAYS PER PT 10/31/17) hydromorphone (Mild, DIZZINESS AND ITCHINESS 10/31/17) Reconcile Medications Acetaminophen (Tylenol Extra Strength) 500 MG TABLET 1-2 TAB PO DAILY PAIN ( Reported) Albuterol Sulfate (Ventolin Hfa) 90 MCG HFA.AER.AD 2 PUF INH Q4-6 PRN PRN SHORTNESS OF BREATH (Reported) Budesonide/Formoterol Fumarate (Symbicort 160-4.5 Mcg Inhaler) 160 MCG-4.5 MCG/ ACTUATION HFA.AER.AD 2 PUF INH BID SHORTNESS OF BREATH (Reported) Butalb/Acetaminophen/Caffeine (Zebutal 50-325-40 MG Capsule) 50 MG-325 MG-40 MG CAPSULE 1 TAB PO TID PRN MIGRAINE Clonazepam 0.5 MG TABLET 2 TAB PO DAILY ANXIETY (Reported) Fluticasone Propionate 50 MCG/ACTUATION SPRAY.SUSP 1 SPRAY NASB DAILY ALLERGIES (Reported) Hydrochlorothiazide 25 MG TABLET 1 TAB PO DAILY WATER RETENTION (Reported) Hydroxyzine HCl (hydrOXYzine HCl) 25 MG TABLET 1 TAB PO TID ITCHING Losartan Potassium 50 MG TABLET 1 TAB PO DAILY HEART (Reported) Meclizine HCl 25 MG TABLET 1 TAB PO TIDPRN PRN DIZZINESS Montelukast Sodium 10 MG TABLET 1 TAB PO DAILY ALLERGIES/COPD (Reported) Oxycodone HCl/Acetaminophen (Oxycodone-Acetaminophen 10-325) 10 MG-325 MG TABLET 1 TAB PO 4XDP PRN PAIN (Reported) Ranitidine HCl 300 MG TABLET 1 TAB PO QPM GI (Reported) Scopolamine (Transderm-Scop) 1 MG/3 DAY PATCH.TD.3 1 PAT AD AD PRN DIZZINESS APPLY BEHIND EAR FOR DIZZINESS EVERY THREE DAYS Tamsulosin HCl 0.4 MG CAP.ER.24H 1 CAP PO DAILY PROSTATE (Reported) Umeclidinium Brm/Vilanterol Tr (Anoro Ellipta 62.5-25 Mcg INH) 62.5 MCG-25 MCG/ ACTUATION BLST.W.DEV BREATHING PROBLEMS (Reported) Triage Note: 73 YO MALE BIBA FROM HOME FOR SOB. PT RECICVED [place] IN ROUTE TO ER BY MEDIC. RA SATS 96%. PT STATES HIS NEW DR TOLD HIM "HE NEEDS A COMPLETE PYSICAL" Triage Nurses Notes Reviewed? yes Onset: Gradual Duration: constant Timing: remote history HPI: Patient is a 72-year-old male presents emergency room with concerns of chronic exacerbation of shortness of breath Patient is attributing his shortness of breath due to losartan he was prescribed approximately 2 months ago. Patient has been evaluated on multiple occasions in the emergency room Since the symptoms began was strongly advised to follow-up with his primary care doctor who prescribed medications which did establish a new primary care doctor Dr. BRINK last week who will have a full physical next month He was strongly advised to continue his home medications patient is also concerned with a remote history of chronic dizziness that is made worse with positional changes.. Denies any chest pain arm pain jaw pain nausea vomiting visual acuity changes headache neck pain (Kodi Cohen) Past History Travel History Traveled to [place] past 21 day No Medical History Any Pertinent Medical History? 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 No (Kodi Cohen) Review of Systems Review of Systems Constitutional: Reports: no symptoms. EENTM: Reports: no symptoms. Respiratory: Reports: see HPI. Cardiovascular: Reports: no symptoms. GI: Reports: no symptoms. Genitourinary: Reports: no symptoms. Musculoskeletal: Reports: no symptoms. Skin: Reports: no symptoms. Neurological/Psychological: Reports: no symptoms. Hematologic/Endocrine: Reports: no symptoms. Immunologic/Allergic: Reports: no symptoms. All Other Systems: Reviewed and Negative (Kodi Cohen) Physical Exam Physical Exam General Appearance: no apparent distress, alert, comfortable Head: atraumatic Eyes: Bilateral: normal appearance, PERRL. Ears, Nose, Throat: normal pharynx, normal ENT inspection Neck: normal inspection Respiratory: normal breath sounds, chest non-tender, no respiratory distress Cardiovascular: regular rate/rhythm Gastrointestinal: normal bowel sounds, soft, non-tender Extremities: normal inspection, no edema Neurologic/Psych: no motor/sensory deficits, awake, alert, oriented x 3, normal gait, normal mood/affect, lime sludge kiln operator II-XII nml as tested Skin: intact, normal color, warm/dry Core Measures ACS in differential dx? No CVA/TIA Diagnosis No Sepsis Present: No Sepsis Focused Exam Completed? No (Kodi Cohen) Progress Differential Diagnosis: asthma, AMI, bronchitis, costochondritis, CHF, COPD, musculoskeletal pain, pericarditis, pulmonary embolism, pneumonia, pneumothorax, rib fracture, unstable angina Plan of Care: Orders Procedure Date/time Status TROPONIN LEVEL 12/06 1136 Complete COMPREHENSIVE METABOLIC PANEL 12/06 1136 Complete CBC WITHOUT DIFFERENTIAL 12/06 1136 Complete EKG 12/06 1132 Active Laboratory Tests 12/06/17 1202: Anion Gap 10, Estimated GFR 59 L, BUN/Creatinine Ratio 17.5, Glucose 99, Calcium 9.6, Total Bilirubin 0.4, AST 20, ALT 33, Alkaline Phosphatase 75, Troponin I < 0.01, Total Protein 6.8, Albumin 3.8, Globulin 3.0, Albumin/ Globulin Ratio 1.3, CBC w Diff NO MAN DIFF REQ, RBC 5.32, MCV 89.4, MCH 29.9, MCHC 33.4, RDW 12.8, MPV 8.9, Gran % 67.9, Lymphocytes % 23.7, Monocytes % 6.3, Eosinophils % 1.4, Basophils % 0.7, Absolute Granulocytes 5.9, Absolute Lymphocytes 2.0, Absolute Monocytes 0.5, Absolute Eosinophils 0.1, Absolute Basophils 0.1 Patient's blood pressure shows no signs of hypotension Patient's ENT exam was unremarkable clear lungs auscultation He was given trial of meclizine and scopolamine patient had normal steady gait He was strongly advised to follow-up with his primary care doctor EKG and blood work and chest x-ray were unremarkable Diagnostic Imaging: Viewed by Me: Radiology Read. Radiology Impression: no acute abnormality, no fracture CXR Impression: no acute abnormality, no infiltrates Initial ED EKG: normal intervals, normal p-waves, 69 BPM,NSR Comments: PATIENT: OG PATEL PRESENT AGE: 72 PATIENT ACCOUNT NO: [id number] : 43 LOCATION: [facility] ORDERING PHYSICIAN: Rico DELANEY SERVICE DATE: 12/06/17 EXAM TYPE: RAD - XRY-CHEST XRAY, TWO VIEWS EXAMINATION: XR CHEST CLINICAL INFORMATION: Shortness of breath. COMPARISON: Several prior chest x-rays, most recent of which is dated 11/13/2017. Low-dose screening CT scan dated 09/28/2017. TECHNIQUE: 2 views of the chest were obtained. FINDINGS: The cardiomediastinal silhouette is within normal limits in size. Calcification of the aortic arch is seen and mild tortuosity of the descending aorta is noted. Lungs bilaterally are symmetrically hyperinflated, consistent with obstructive lung disease. Slight thickening of the central airways is seen. No focal consolidation, effusion or pneumothorax is seen. The multiple tiny pulmonary nodules seen on CT scan are poorly appreciated on plain film. Bony structures are unremarkable. IMPRESSION: Obstructive lung disease. Known lung nodules poorly appreciated. No focal acute process. DICTATED BY: Antonia Pan MD DATE/TIME DICTATED:12/06/17 1245 SPA ATTENDANT:RJ DATE/TIME TRANSCRIBED:12/06/17 (Kodi Cohen) Departure Departure Disposition: HOME OR SELF CARE Condition: Stable Clinical Impression Primary Impression: Dizziness Secondary Impressions: Dyspnea Referrals: Luis A CHAPPELL,Delma Barron MD,Eduardo Additional Instructions: As discussed if symptoms worsen or if you develop new concerning symptom return to emergency room, Follow up with your establish primary care doctor next month as YOU HAVE an appointment. Begin the prescription scopolamine and meclizine for your symptoms. Prescriptions at [facility] Departure Forms: Customer Survey General Discharge Information Prescriptions: Current Visit Scripts Meclizine HCl 1 TAB PO TIDPRN PRN DIZZINESS #15 TAB Scopolamine (Transderm-Scop) 1 PAT AD AD PRN DIZZINESS #9 PAT APPLY BEHIND EAR FOR DIZZINESS EVERY THREE DAYS (Kodi Cohen) PA/ASSEMBLY LEAD PERSON Co-Sign Statement Statement: ED Attending supervision documentation- [X] I saw and evaluated the patient. I have also reviewed all the pertinent lab results and diagnostic results. I agree with the findings and the plan of care as documented in the PA's/ASSEMBLY LEAD PERSON's documentation. Patient presents for evaluation for possible medication side effect. Physical examination reveals an alert and comfortable and conversant patient in no respiratory distress. There are no apparent rashes. [] I have reviewed the ED Record and agree with the PA's/ASSEMBLY LEAD PERSON's documentation. [] Additions or exceptions (if any) to the PAs/ASSEMBLY LEAD PERSON's note and plan are summarized below: [] (Brina CHAPPELL,Tomás Martin) Critical Care Note Critical Care Note Critical Care Time: non-applicable (Kodi Cohen)
[2017-12-06 12:11] LABS: ABSOLUTE BASOPHIL COUNT 0.1 /CUMM (0.0-0.2); ABSOLUTE EOSINOPHIL COUNT 0.1 /CUMM (0.0-0.7); ABSOLUTE GRANULOCYTE CT 5.9 /CUMM (1.4-6.5); ABSOLUTE MONOCYTE COUNT 0.5 /CUMM (0.10-0.60); BASOPHIL % 0.7 % (0.0-2.0); EOSINOPHIL % 1.4 % (0-5); GRANULOCYTE % 67.9 % (42.2-75.2); HEMATOCRIT 47.6 % (42-52); MEAN CORPUSCULAR HGB 29.9 PG (27.0-31.0); MEAN CORPUSCULAR HGB CONC 33.4 G/DL (33.0-37.0); MEAN CORPUSCULAR VOLUME 89.4 FL (80.0-94.0); MEAN PLATELET VOLUME 8.9 FL (7.4-10.4); PLATELET COUNT 252 /CUMM (130-400); RBC DISTRIBUTION WIDTH 12.8 % (11.5-14.5); RED BLOOD CELL CT 5.32 /CUMM (4.70-6.10); WHITE BLOOD CELL COUNT 8.6 /CUMM (4.8-10.8)
[2017-12-06] MEDS ORDERED: LOSARTAN POTASS50 M1 PO (12:27)
[2017-12-06] MEDS ORDERED: HYDROCHLOROTHIA25 M1 PO (12:28)
[2017-12-06] MEDS ORDERED: ANORO ELLIPTA1 EACH PO (12:30)
--- NOTE | 2017-12-06 12:51 | RADIOLOGY REPORT ---
EXAMINATION: XR CHEST CLINICAL INFORMATION: Shortness of breath. COMPARISON: Several prior chest x-rays, most recent of which is dated 11/13/2017. Low-dose screening CT scan dated 09/28/2017. TECHNIQUE: 2 views of the chest were obtained. FINDINGS: The cardiomediastinal silhouette is within normal limits in size. Calcification of the aortic arch is seen and mild tortuosity of the descending aorta is noted. Lungs bilaterally are symmetrically hyperinflated, consistent with obstructive lung disease. Slight thickening of the central airways is seen. No focal consolidation, effusion or pneumothorax is seen. The multiple tiny pulmonary nodules seen on CT scan are poorly appreciated on plain film. Bony structures are unremarkable. IMPRESSION: Obstructive lung disease. Known lung nodules poorly appreciated. No focal acute process.
[2017-12-06 14:00] VITALS: BP 138/85
[2017-12-06] MEDS ORDERED: TRANSDERM-SCOP1 EAC1 AD (14:00)
[2017-12-06] MEDS ORDERED: MECLIZINE HCL25 MG PO (14:00)
== END 2017-12-06 14:10 ==
LOC: ERH 11:31
PROVIDERS: Physician Assistant Medical
DX: R42 Dizziness and giddiness (principal); R06.00 Dyspnea, unspecified
CPT/HCPCS: 71046

== ENCOUNTER 2018-01-08 12:34 | Emergency (ER) | payer OTHER, MEDICARE ==
[~2018-01-08] VITALS: Ht 172.7 cm; Wt 66.2 kg
[~2018-01-08 12:34] MED LIST changes: +ANORO ELLIPTA1 EACH PO; +HYDROCHLOROTHIA25 M1 PO; +LOSARTAN POTASS50 M1 PO; +TRANSDERM-SCOP1 EAC1 AD
[2018-01-08] MEDS ORDERED: LISINOPRIL40 M1 PO (13:15)
--- NOTE | 2018-01-08 13:15 | ED GI/GU/ABDOMINAL COMPLAINT ---
History of Present Illness General Chief Complaint: General Adult Stated Complaint: PT STATES "Phill MARROQUIN,[facility] SENT ME" Source: patient, old records Exam Limitations: no limitations Vital Signs & Intake/Output Vital Signs & Intake/Output Vital Signs Date Time Temp Pulse Resp B/P B/P Pulse O2 O2 Flow FiO2 Mean Ox Delivery Rate 01/08 1331 Room Air 01/08 1331 98.3 64 18 174/94 97 Room Air 01/08 1247 97.8 74 18 150/88 96 Room Air Allergies Coded Allergies: Iodinated Contrast- Oral and IV Dye (IODINATED CONTRAST MEDIA - IV DYE) (MAKES ME SICK FOR DAYS PER PT 10/31/17) hydromorphone (Mild, DIZZINESS AND ITCHINESS 10/31/17) Reconcile Medications Acetaminophen (Tylenol Extra Strength) 500 MG TABLET 1-2 TAB PO DAILY PAIN ( Reported) Albuterol Sulfate (Ventolin Hfa) 90 MCG HFA.AER.AD 2 PUF INH Q4-6 PRN PRN SHORTNESS OF BREATH (Reported) Budesonide/Formoterol Fumarate (Symbicort 160-4.5 Mcg Inhaler) 160 MCG-4.5 MCG/ ACTUATION HFA.AER.AD 2 PUF INH BID SHORTNESS OF BREATH (Reported) Clonazepam 0.5 MG TABLET 2 TAB PO DAILY ANXIETY (Reported) Hydrochlorothiazide 25 MG TABLET 1 TAB PO DAILY WATER RETENTION (Reported) Lisinopril 40 MG TABLET 1 TAB PO DAILY BP (Reported) Montelukast Sodium 10 MG TABLET 1 TAB PO DAILY ALLERGIES/COPD (Reported) Oxycodone HCl/Acetaminophen (Oxycodone-Acetaminophen 10-325) 10 MG-325 MG TABLET 1 TAB PO 4XDP PRN PAIN (Reported) Ranitidine HCl 300 MG TABLET 1 TAB PO QPM GI (Reported) Tamsulosin HCl 0.4 MG CAP.ER.24H 1 CAP PO DAILY PROSTATE (Reported) Triage Note: PT STATES [facility]. PT STATES HE HAS BEEN TAKING HIS BP AND THE LAST ONE HE TOOK WAS 175/97...150/88 MANUAL AT TRIAGE Triage Nurses Notes Reviewed? yes HPI: 72M PMH HTN, anxiety, COPD presenting with multiple complaints. Reports that since this morning he has had chills and an upset stomach. He also reports several month history of dizziness and constant frontal headache. He feels as if all his muscles are aching. He reports a lack of energy and motivation. He also feels depressed, and denies SI/HI or intentions of self-harm. He denies fever, sore throat, SOB, chest pain, diarrhea, dysuria, constipation. Past History Travel History Traveled to [place] past 21 day No Medical History Any Pertinent Medical History? 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 No Review of Systems Review of Systems Constitutional: Reports: no symptoms. EENTM: Reports: no symptoms. Respiratory: Reports: no symptoms. Cardiovascular: Reports: no symptoms. GI: Reports: no symptoms. Genitourinary: Reports: no symptoms. Musculoskeletal: Reports: no symptoms. Skin: Reports: no symptoms. Neurological/Psychological: Reports: no symptoms. Hematologic/Endocrine: Reports: no symptoms. Immunologic/Allergic: Reports: no symptoms. All Other Systems: Reviewed and Negative Physical Exam Physical Exam General Appearance: well developed/nourished, no apparent distress Head: atraumatic, normal appearance Eyes: Bilateral: normal appearance, PERRL, EOMI. Ears, Nose, Throat, Mouth: hearing grossly normal, moist mucous membrane Neck: normal inspection, full range of motion Respiratory: normal breath sounds, chest non-tender, no respiratory distress Cardiovascular: regular rate/rhythm Gastrointestinal: soft, non-tender Back: normal inspection, normal range of motion Extremities: normal range of motion Neurologic/Psych: awake, alert, oriented x 3, normal mood/affect Skin: intact, normal color, warm/dry Core Measures ACS in differential dx? No Sepsis Present: No Sepsis Focused Exam Completed? No Progress Differential Diagnosis: gastritis, UTI/pyelo Plan of Care: Orders Procedure Date/time Status THYROID STIMULATING HORMONE 01/08 1315 Active CORTISOL AM 01/08 1315 Active URINALYSIS 01/08 1313 Active TROPONIN LEVEL 01/08 1249 Active COMPREHENSIVE METABOLIC PANEL 01/08 124 Active CBC WITHOUT DIFFERENTIAL 01/08 124 Complete EKG 01/08 124 Active Laboratory Tests 01/08/18 1315: Anion Gap 11, Estimated GFR > 60, BUN/Creatinine Ratio 11.1, Glucose 87, Calcium 9.6, Total Bilirubin 0.8, AST 20, ALT 29, Alkaline Phosphatase 69, Troponin I < 0.01, Total Protein 6.8, Albumin 3.9, Globulin 2.9, Albumin/Globulin Ratio 1.3, TSH Pending, Cortisol AM Sample Pending, CBC w Diff NO MAN DIFF REQ, RBC 5.12, MCV 89.7, MCH 29.9, MCHC 33.4, RDW 13.9, MPV 8.2, Gran % 70.3, Lymphocytes % 21.3, Monocytes % 6.0, Eosinophils % 2.2, Basophils % 0.2, Absolute Granulocytes 6.0, Absolute Lymphocytes 1.8, Absolute Monocytes 0.5, Absolute Eosinophils 0.2, Absolute Basophils 0 01/08/18 131: TSH Cancelled, Cortisol AM Sample Cancelled Initial ED EKG: normal sinus rhythm, no ST T wave changes Departure Departure Disposition: HOME OR SELF CARE Condition: Stable Clinical Impression Primary Impression: Viral syndrome Referrals: Kris CHAPPELL,Kris (PCP/Family) Additional Instructions: Follow up with your PCP. Drink plenty of water. Continue your low salt diet. Return to ER if new or worsening symptoms. Departure Forms: Customer Survey General Discharge Information
[2018-01-08 13:24] LABS: ABSOLUTE BASOPHIL COUNT 0 /CUMM (0.0-0.2); ABSOLUTE EOSINOPHIL COUNT 0.2 /CUMM (0.0-0.7); ABSOLUTE LYMPH COUNT 1.8 /CUMM (1.2-3.4); ABSOLUTE MONOCYTE COUNT 0.5 /CUMM (0.10-0.60); BASOPHIL % 0.2 % (0.0-2.0); EOSINOPHIL % 2.2 % (0-5); GRANULOCYTE % 70.3 % (42.2-75.2); MEAN CORPUSCULAR HGB 29.9 PG (27.0-31.0); MEAN CORPUSCULAR HGB CONC 33.4 G/DL (33.0-37.0); MEAN CORPUSCULAR VOLUME 89.7 FL (80.0-94.0); MEAN PLATELET VOLUME 8.2 FL (7.4-10.4); PLATELET COUNT 301 /CUMM (130-400); RBC DISTRIBUTION WIDTH 13.9 % (11.5-14.5); RED BLOOD CELL CT 5.12 /CUMM (4.70-6.10); WHITE BLOOD CELL COUNT 8.5 /CUMM (4.8-10.8)
[2018-01-08 14:54] VITALS: BP 160/90
== END 2018-01-08 14:55 ==
LOC: ERH 12:34
PROVIDERS: Physician Assistant Medical
DX: B34.9 Viral infection, unspecified (principal); R42 Dizziness and giddiness; R51 Headache; M79.1 Myalgia
CPT/HCPCS: 93005; 93010

== ENCOUNTER 2018-01-10 08:37 | Emergency (ER) | payer OTHER, MEDICARE ==
[~2018-01-10] VITALS: Ht 172.7 cm; Wt 66.2 kg
[~2018-01-10 08:37] MED LIST changes: +LISINOPRIL40 M1 PO
--- NOTE | 2018-01-10 09:30 | ED GENERAL ADULT ---
History of Present Illness General Chief Complaint: General Adult Stated Complaint: VIRAL SYNDROME SEEN HERE YESTERDAY FOR SAME Source: patient Exam Limitations: no limitations Vital Signs & Intake/Output Vital Signs & Intake/Output Vital Signs Date Time Temp Pulse Resp B/P B/P Pulse O2 O2 Flow FiO2 Mean Ox Delivery Rate 01/10 1102 98.0 82 20 140/78 98 Room Air 01/10 0840 97.1 78 20 158/89 97 Room Air Allergies Coded Allergies: Iodinated Contrast- Oral and IV Dye (IODINATED CONTRAST MEDIA - IV DYE) (MAKES ME SICK FOR DAYS PER PT 10/31/17) hydromorphone (Mild, DIZZINESS AND ITCHINESS 10/31/17) Reconcile Medications Acetaminophen (Tylenol Extra Strength) 500 MG TABLET 1-2 TAB PO DAILY PAIN ( Reported) Albuterol Sulfate (Ventolin Hfa) 90 MCG HFA.AER.AD 2 PUF INH Q4-6 PRN PRN SHORTNESS OF BREATH (Reported) Budesonide/Formoterol Fumarate (Symbicort 160-4.5 Mcg Inhaler) 160 MCG-4.5 MCG/ ACTUATION HFA.AER.AD 2 PUF INH BID SHORTNESS OF BREATH (Reported) Clonazepam 0.5 MG TABLET 2 TAB PO DAILY ANXIETY (Reported) Hydrochlorothiazide 25 MG TABLET 1 TAB PO DAILY WATER RETENTION (Reported) Lisinopril 40 MG TABLET 1 TAB PO DAILY BP (Reported) Montelukast Sodium 10 MG TABLET 1 TAB PO DAILY ALLERGIES/COPD (Reported) Oxycodone HCl/Acetaminophen (Oxycodone-Acetaminophen 10-325) 10 MG-325 MG TABLET 1 TAB PO 4XDP PRN PAIN (Reported) Ranitidine HCl 300 MG TABLET 1 TAB PO QPM GI (Reported) Tamsulosin HCl 0.4 MG CAP.ER.24H 1 CAP PO DAILY PROSTATE (Reported) Triage Note: PT TO ED C/O WORSENING VIRAL SYNDROME. WAS SEEN 2 DAYS AGO AND TOLD TO COME BACK IF HE FELT WORSE. PT STATES "I FEEL WORSE". Triage Nurses Notes Reviewed? yes HPI: 72-year-old male presents with multiple complaints. The patient reports that he is not feeling well, feels nauseous and continues to have dizziness and his multiple complaints. He denies feeling depressed or suicidal. He denies any other physical pain. He denies abdominal pain. Past History Travel History Traveled to [place] past 21 day No Medical History Any Pertinent Medical History? 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 No Review of Systems Review of Systems Constitutional: Denies: no symptoms. EENTM: Denies: blurred vision, double vision. Respiratory: Denies: cough, hemoptysis, orthopnea. Cardiovascular: Denies: chest pain, edema, orthopena, palpitations. GI: Reports: nausea. Denies: abdominal pain, diarrhea. Genitourinary: Denies: no symptoms. Musculoskeletal: Reports: muscle pain. Skin: Denies: no symptoms. Neurological/Psychological: Reports: ataxia, depressed. Denies: anxiety. Immunologic/Allergic: Denies: no symptoms. Physical Exam Physical Exam General Appearance: well developed/nourished Head: atraumatic Eyes: Bilateral: normal appearance. Ears, Nose, Throat: normal ENT inspection Neck: normal inspection Respiratory: normal breath sounds Cardiovascular: regular rate/rhythm Gastrointestinal: normal bowel sounds Back: normal inspection Extremities: normal inspection Neurologic/Psych: no motor/sensory deficits, oriented x 3 Skin: intact Core Measures ACS in differential dx? No CVA/TIA Diagnosis: No Sepsis Present: No Sepsis Focused Exam Completed? No Progress Differential Diagnoses The patient has multiple complaints. But a very benign exam. He has been here multiple times. I reviewed previous charts. We will check labs. We will see the patient. Plan of Care: Orders Procedure Date/time Status Regular Diet 01/10 L Active Saline Lock 01/10 1215 Active LIPASE 01/10 0948 Complete COMPREHENSIVE METABOLIC PANEL 01/11 948 Complete CBC WITHOUT DIFFERENTIAL 01/11 948 Complete Laboratory Tests 01/10/18 0959: Anion Gap 11, Estimated GFR > 60, BUN/Creatinine Ratio 15.0, Glucose 89, Calcium 10.1, Total Bilirubin 0.9, AST 21, ALT 26, Alkaline Phosphatase 73, Total Protein 7.3, Albumin 4.3, Globulin 3.0, Albumin/Globulin Ratio 1.4, Lipase 32, CBC w Diff NO MAN DIFF REQ, RBC 5.14, MCV 89.0, MCH 30.4, MCHC 34.1, RDW 13.8, MPV 8.6, Gran % 77.2 H, Lymphocytes % 15.6 L, Monocytes % 5.6, Eosinophils % 1.3, Basophils % 0.3, Absolute Granulocytes 6.4, Absolute Lymphocytes 1.3, Absolute Monocytes 0.5, Absolute Eosinophils 0.1, Absolute Basophils 0 Initial ED EKG: none Comments: 1435 : The patient remains comfortable, had a diet. Not vomiting. Feeling better. Her oral meds. Soft benign abdomen. CT negative. Labs negative. The patient's main complaint today was nausea and abdominal discomfort. No acute pathology on an extensive workup. Perfect neurological exam. The patient probably has viral syndrome. He is nontoxic and doing well. Plan will be discharged home with outpatient follow-up with PCP. Departure Departure Time of Disposition: 1435 Disposition: HOME OR SELF CARE Condition: Stable Clinical Impression Primary Impression: Abdominal pain Secondary Impressions: Nausea Referrals: Kris Ponce MD (PCP/Family) Departure Forms: Customer Survey General Discharge Information Comments 72-year-old male, doing well. Negative workup. Soft benign abdomen. Warnings for return given. Critical Care Note Critical Care Note Critical Care Time: non-applicable
[2018-01-10 10:13] LABS: ABSOLUTE BASOPHIL COUNT 0 /CUMM (0.0-0.2); ABSOLUTE EOSINOPHIL COUNT 0.1 /CUMM (0.0-0.7); ABSOLUTE GRANULOCYTE CT 6.4 /CUMM (1.4-6.5); ABSOLUTE LYMPH COUNT 1.3 /CUMM (1.2-3.4); ABSOLUTE MONOCYTE COUNT 0.5 /CUMM (0.10-0.60); BASOPHIL % 0.3 % (0.0-2.0); EOSINOPHIL % 1.3 % (0-5); GRANULOCYTE % 77.2 % (42.2-75.2); HEMATOCRIT 45.8 % (42-52); MEAN CORPUSCULAR HGB 30.4 PG (27.0-31.0); MEAN CORPUSCULAR HGB CONC 34.1 G/DL (33.0-37.0); MEAN PLATELET VOLUME 8.6 FL (7.4-10.4); PLATELET COUNT 298 /CUMM (130-400); RBC DISTRIBUTION WIDTH 13.8 % (11.5-14.5); RED BLOOD CELL CT 5.14 /CUMM (4.70-6.10); WHITE BLOOD CELL COUNT 8.3 /CUMM (4.8-10.8)
--- NOTE | 2018-01-10 14:32 | CT SCAN REPORT ---
EXAMINATION: CT ABDOMEN AND PELVIS WITHOUT CONTRAST CLINICAL INFORMATION: Abdominal pain. COMPARISON: 06/03/2015 TECHNIQUE: Multidetector volumetric imaging was performed from the superior aspect of the liver through the pubic symphysis. Sagittal and coronal reformatted images were obtained on the technologist's workstation. DLP: 229.99 mGy-cm FINDINGS: LUNG BASES: Centrilobular emphysematous changes. LIVER, GALLBLADDER, AND BILIARY TREE: The liver is normal in size, shape, and attenuation. No focal hepatic lesion or biliary ductal dilatation is present. The gallbladder is unremarkable with no evidence of radiopaque gallstones, gallbladder wall thickening, or obvious pericholecystic inflammatory changes. PANCREAS: Unremarkable. SPLEEN: Unremarkable. ADRENAL GLANDS: Stable nodularity of the adrenal glands. KIDNEYS AND URETERS: Stable right renal cyst. No evidence of hydronephrosis or perinephric stranding. No evidence of urolithiasis. BLADDER: Unremarkable GASTROINTESTINAL TRACT: Diverticulosis predominantly involving the sigmoid colon without CT evidence of diverticulitis. The appendix is not seen. There are no inflammatory changes in the right lower quadrant. No evidence of bowel obstruction. Small hiatal hernia. Multiple oval radiodensities are seen within the stomach. ABDOMINAL WALL: No significant hernia is appreciated. LYMPH NODES: No evidence of lymphadenopathy within the abdomen or pelvis by CT criteria. VASCULAR: Atherosclerosis and ectasia of the abdominal aorta. PELVIC VISCERA: Mastectomy clips. Enlargement of the prostate to 5.2 cm in transverse dimension. OSSEOUS STRUCTURES: Degenerative changes of the spine. No suspicious or acute osseous abnormality. IMPRESSION: 1. No evidence of acute abdominal or pelvic abnormality. 2. The prostate is enlarged. 3. Other chronic, nonacute findings as above.
[2018-01-10 15:02] VITALS: BP 142/80
== END 2018-01-10 15:02 ==
LOC: ERH 08:37
PROVIDERS: Emergency Medicine
DX: R10.9 Unspecified abdominal pain (principal); R11.0 Nausea; R42 Dizziness and giddiness
CPT/HCPCS: 74176

== ENCOUNTER 2018-01-16 14:36 | Emergency (ER) | payer OTHER, MEDICARE ==
--- NOTE | 2018-01-16 14:51 | ED GI/GU/ABDOMINAL COMPLAINT ---
History of Present Illness General Chief Complaint: Nausea, Vomiting, Diarrhea Stated Complaint: STOMACH PAINS +D X24HRS 7-8 MOVMENTS Source: patient, old records Exam Limitations: no limitations Vital Signs & Intake/Output Vital Signs & Intake/Output Vital Signs Date Time Temp Pulse Resp B/P B/P Pulse O2 O2 Flow FiO2 Mean Ox Delivery Rate 01/16 1803 98.6 76 18 143/88 98 Room Air 01/16 1441 98.5 105 17 165/85 96 Room Air Allergies Coded Allergies: Iodinated Contrast- Oral and IV Dye (IODINATED CONTRAST MEDIA - IV DYE) (MAKES ME SICK FOR DAYS PER PT 10/31/17) hydromorphone (Mild, DIZZINESS AND ITCHINESS 10/31/17) Reconcile Medications Acetaminophen (Tylenol Extra Strength) 500 MG TABLET 1-2 TAB PO DAILY PAIN ( Reported) Albuterol Sulfate (Ventolin Hfa) 90 MCG HFA.AER.AD 2 PUF INH Q4-6 PRN PRN SHORTNESS OF BREATH (Reported) Budesonide/Formoterol Fumarate (Symbicort 160-4.5 Mcg Inhaler) 160 MCG-4.5 MCG/ ACTUATION HFA.AER.AD 2 PUF INH BID SHORTNESS OF BREATH (Reported) Clonazepam 0.5 MG TABLET 2 TAB PO DAILY ANXIETY (Reported) Dicyclomine HCl 10 MG CAPSULE 1-2 CAP PO TID abd spasms Hydrochlorothiazide 25 MG TABLET 1 TAB PO DAILY WATER RETENTION (Reported) Lisinopril 40 MG TABLET 1 TAB PO DAILY BP (Reported) Montelukast Sodium 10 MG TABLET 1 TAB PO DAILY ALLERGIES/COPD (Reported) Oxycodone HCl/Acetaminophen (Oxycodone-Acetaminophen 10-325) 10 MG-325 MG TABLET 1 TAB PO 4XDP PRN PAIN (Reported) Ranitidine HCl 300 MG TABLET 1 TAB PO QPM GI (Reported) Tamsulosin HCl 0.4 MG CAP.ER.24H 1 CAP PO DAILY PROSTATE (Reported) Triage Note: PT TO ED WT[facility] C/O 7-8 EPISODES OF WATERY DIARRHEA SINCE 4 AM TODAY. REPORTS GENERALIZED ABD PAIN. STATES, "I JUST CAME FROM MY DOCTOR, BUT THEY COULDNT DO ANYTHING FOR ME." DENIES CP OR SOB. DENIES N/V. Triage Nurses Notes Reviewed? yes Onset: Abrupt Duration: day(s): Timing: recent history Quality/Severity: cramping, sharpness Location: generalized abdomen Radiation: no radiation HPI: 72-year-old male comes into the emergency room for further evaluation of abdominal cramping and diarrhea that began around 4 AM this morning. Denies any fever chills vomiting. Denies any chest reassurance of breath. He comes in for further evaluation. Denies any other associated symptoms. (Rico Rosa) Past History Travel History Traveled to [place] past 21 day No Medical History Any Pertinent Medical History? 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 Cardiovascular: hypertension Respiratory: emphysema Gastrointestinal: GERD Hepatic: NONE Renal: benign prost hyperplasia Musculoskeletal: osteoporosis, CHRONIC PAIN Psychiatric: anxiety Endocrine: NONE Blood Disorders: NONE Cancer(s): NONE OPERATIONS ACCOUNTANT/Reproductive: NONE History of MRSA: No History of VRE: No History of CDIFF: No Surgical History Surgical History: cataract removal Psychosocial History Who do you live with Patient/Self Services at Home None What is your primary language Khmer Tobacco Use: Quit >30 days ago Family History Family History, If Any: Relation not specified for: *No pertinent family history Hx Contributory? No (Rico Rosa) Review of Systems Review of Systems Constitutional: Reports: no symptoms. EENTM: Reports: no symptoms. Respiratory: Reports: no symptoms. Cardiovascular: Reports: no symptoms. GI: Reports: see HPI. Genitourinary: Reports: no symptoms. Musculoskeletal: Reports: no symptoms. Skin: Reports: no symptoms. Neurological/Psychological: Reports: no symptoms. Hematologic/Endocrine: Reports: no symptoms. Immunologic/Allergic: Reports: no symptoms. All Other Systems: Reviewed and Negative (Rico Rosa) Physical Exam Physical Exam General Appearance: well developed/nourished, alert, awake Head: atraumatic Eyes: Bilateral: normal appearance, EOMI. Ears, Nose, Throat, Mouth: hearing grossly normal, moist mucous membrane Neck: normal inspection Respiratory: normal breath sounds, no respiratory distress Cardiovascular: regular rate/rhythm Gastrointestinal: soft, non-tender Back: normal inspection Extremities: normal range of motion Neurologic/Psych: awake, alert, oriented x 3 Skin: intact, normal color Core Measures ACS in differential dx? No Sepsis Present: No Sepsis Focused Exam Completed? No (Consuelo Rosanton) Progress Differential Diagnosis: bowel obstruction, diverticulitis, gastritis, ischemic bowel, inflamm bowel dis, prostatitis, PUD/GERD, perforated viscous, SBO Plan of Care: Orders Procedure Date/time Status LIPASE 01/16 1440 Complete LACTIC ACID 01/16 1440 Complete COMPREHENSIVE METABOLIC PANEL 01/16 1440 Complete CBC WITHOUT DIFFERENTIAL 01/16 144 Complete Laboratory Tests 01/16/18 1740: Lactic Acid Cancelled 01/16/18 1600: Anion Gap 13, Estimated GFR > 60, BUN/Creatinine Ratio 15.0, Glucose 85, Lactic Acid 1.1, Calcium 9.9, Total Bilirubin 1.1, AST 22, ALT 29, Alkaline Phosphatase 70, Total Protein 7.4, Albumin 4.4, Globulin 3.0, Albumin/Globulin Ratio 1.5, Lipase 27 01/16/18 1534: CBC w Diff NO MAN DIFF REQ, RBC 4.91, MCV 89.8, MCH 30.5, MCHC 34.0, RDW 14.1, MPV 9.5, Gran % 81.4 H, Lymphocytes % 8.3 L, Monocytes % 8.9, Eosinophils % 1.3, Basophils % 0.1, Absolute Granulocytes 10.2 H, Absolute Lymphocytes 1.0 L , Absolute Monocytes 1.1 H, Absolute Eosinophils 0.2, Absolute Basophils 0 Diagnostic Imaging: Viewed by Me: CT Scan. Discussed w/RAD: CT Scan. Radiology Impression: PATIENT: OG PATEL PRESENT AGE: 72 PATIENT ACCOUNT NO: [id number] : 43 LOCATION: [facility] ORDERING PHYSICIAN: Rico DELANEY SERVICE DATE: 01/16/18-1440 EXAM TYPE: CAT - CT ABD & PELVIS W/O IV CONTRAS EXAMINATION: CT ABDOMEN AND PELVIS WITHOUT CONTRAST CLINICAL INFORMATION: Abdominal pain. Cramping. COMPARISON: CT scan abdomen pelvis 01/10/2018 TECHNIQUE: Multidetector volumetric imaging was performed from the superior aspect of the liver through the pubic symphysis. Sagittal and coronal reformatted images were obtained on the technologist's workstation. DLP: 237.33 mGy-cm FINDINGS: LUNG BASES: There is emphysematous lucency of lungs. No infiltrate or effusion at the lung bases. LIVER, GALLBLADDER, AND BILIARY TREE: The liver is normal in size, shape, and attenuation. No focal hepatic lesion or biliary ductal dilatation is present. The gallbladder is unremarkable with no evidence of radiopaque gallstones, gallbladder wall thickening, or obvious pericholecystic inflammatory changes. PANCREAS: Unremarkable. SPLEEN: Unremarkable. ADRENAL GLANDS: There is a right adrenal adenoma. Density measurement of 9 Hounsfield units. This measures 1.6 cm. There is a left adrenal adenoma measuring 1.4 cm. Density measurement of 10 Hounsfield units. KIDNEYS AND URETERS: There are parapelvic cysts in the right and left kidney. There is no hydronephrosis. There is no renal or ureteral calculus. 2 cm cortical cyst at the lower pole cortex of the right kidney. BLADDER: Unremarkable. GASTROINTESTINAL TRACT: There is diverticulosis of the colon. Numerous diverticula of the sigmoid colon with scattered diverticula in the remainder the colon. There is no diverticulitis. There is no acute change of the bowel. No bowel obstruction. No bowel wall thickening or edema. The cecum is on a long mesentery and is looped up under the mid transverse colon. No evidence of mesenteric twist, no volvulus. The appendix is normal. The small bowel loops are normal. ABDOMINAL WALL: No significant hernia is appreciated. LYMPH NODES: Normal. VASCULAR: There is atherosclerotic vascular wall calcifications of aorta and iliac vessels. There is no aneurysm. PELVIC VISCERA: There are surgical clips in the scrotum. Prostate enlarged measuring 5 cm transverse. OSSEOUS STRUCTURES: Degenerative spondylosis of spine with vacuum disc phenomena endplate spurring and facet joint arthrosis at L4-L5. IMPRESSION: There is no acute abnormality of the abdomen or the pelvis. DICTATED BY: Karl Connolly MD DATE/TIME DICTATED:01/16/181535 FURNACE COMBUSTION TESTER:RJ DATE/TIME TRANSCRIBED:01/16/181535 CONFIDENTIAL, DO NOT COPY WITHOUT APPROPRIATE AUTHORIZATION. <Electronically signed in Other Vendor System> SIGNED BY: Karl Connolly MD 01/16/18 1833 Initial ED EKG: none (Rico Rosa) Departure Departure Disposition: HOME OR SELF CARE Condition: Stable Clinical Impression Primary Impression: Abdominal pain Secondary Impressions: Diarrhea Referrals: Kris Ponce MD (PCP/Family) Additional Instructions: Take Bentyl as prescribed. Follow-up with primary doctor. Return if any concerns worsening symptoms. Please note that there might be incidental findings in your evaluation that are unrelated to the current emergency department visit. Please notify your primary care doctor about this emergency department visit in order to obtain and review all of the testing performed so that these incidental findings can be monitored as needed. If you had an x-ray performed, please understand that some fractures may not be seen on the initial set of x-rays. If your symptoms persist you might need a repeat set of x-rays to check for such a fracture. If you had a laceration evaluated, please understand that foreign bodies such as glass or wood may not be visible to the naked eye or on plain x-rays. If the wound becomes red, swollen, increasingly more painful or if there is any drainage from the wound, please have it reevaluated by a physician for the possibility of a retained foreign body. If you're unable to follow up as outlined in the discharge instructions please return to the emergency department. Thank you for choosing the [facility] Emergency Department for your care. It was a pleasure to serve you today. Departure Forms: Customer Survey General Discharge Information Prescriptions: Current Visit Scripts Dicyclomine HCl 1-2 CAP PO TID #30 CAP Comments Patient clinically looks well. No distress. Nontoxic appearing. (Rico Rosa) PA/CLEANER TOUCH UP WORKER Co-Sign Statement Statement: ED Attending supervision documentation- [X] I saw and evaluated the patient. I have also reviewed all the pertinent lab results and diagnostic results. I agree with the findings and the plan of care as documented in the PA's/CLEANER TOUCH UP WORKER's documentation. [] I have reviewed the ED Record and agree with the PA's/CLEANER TOUCH UP WORKER's documentation. [] Additions or exceptions (if any) to the PAs/CLEANER TOUCH UP WORKER's note and plan are summarized below: [] (Tomás Sheldon DO
[2018-01-16 15:51] LABS: ABSOLUTE BASOPHIL COUNT 0 /CUMM (0.0-0.2); ABSOLUTE EOSINOPHIL COUNT 0.2 /CUMM (0.0-0.7); ABSOLUTE GRANULOCYTE CT 10.2 /CUMM (1.4-6.5); ABSOLUTE MONOCYTE COUNT 1.1 /CUMM (0.10-0.60); BASOPHIL % 0.1 % (0.0-2.0); EOSINOPHIL % 1.3 % (0-5); GRANULOCYTE % 81.4 % (42.2-75.2); MEAN CORPUSCULAR HGB 30.5 PG (27.0-31.0); MEAN CORPUSCULAR VOLUME 89.8 FL (80.0-94.0); MEAN PLATELET VOLUME 9.5 FL (7.4-10.4); PLATELET COUNT 269 /CUMM (130-400); RBC DISTRIBUTION WIDTH 14.1 % (11.5-14.5); RED BLOOD CELL CT 4.91 /CUMM (4.70-6.10)
[2018-01-16 15:53] LABS: WHITE BLOOD CELL COUNT 12.5 /CUMM (4.8-10.8)
--- NOTE | 2018-01-16 15:57 | CT SCAN REPORT ---
EXAMINATION: CT ABDOMEN AND PELVIS WITHOUT CONTRAST CLINICAL INFORMATION: Abdominal pain. Cramping. COMPARISON: CT scan abdomen pelvis 01/10/2018 TECHNIQUE: Multidetector volumetric imaging was performed from the superior aspect of the liver through the pubic symphysis. Sagittal and coronal reformatted images were obtained on the technologist's workstation. DLP: 237.33 mGy-cm FINDINGS: LUNG BASES: There is emphysematous lucency of lungs. No infiltrate or effusion at the lung bases. LIVER, GALLBLADDER, AND BILIARY TREE: The liver is normal in size, shape, and attenuation. No focal hepatic lesion or biliary ductal dilatation is present. The gallbladder is unremarkable with no evidence of radiopaque gallstones, gallbladder wall thickening, or obvious pericholecystic inflammatory changes. PANCREAS: Unremarkable. SPLEEN: Unremarkable. ADRENAL GLANDS: There is a right adrenal adenoma. Density measurement of 9 Hounsfield units. This measures 1.6 cm. There is a left adrenal adenoma measuring 1.4 cm. Density measurement of 10 Hounsfield units. KIDNEYS AND URETERS: There are parapelvic cysts in the right and left kidney. There is no hydronephrosis. There is no renal or ureteral calculus. 2 cm cortical cyst at the lower pole cortex of the right kidney. BLADDER: Unremarkable. GASTROINTESTINAL TRACT: There is diverticulosis of the colon. Numerous diverticula of the sigmoid colon with scattered diverticula in the remainder the colon. There is no diverticulitis. There is no acute change of the bowel. No bowel obstruction. No bowel wall thickening or edema. The cecum is on a long mesentery and is looped up under the mid transverse colon. No evidence of mesenteric twist, no volvulus. The appendix is normal. The small bowel loops are normal. ABDOMINAL WALL: No significant hernia is appreciated. LYMPH NODES: Normal. VASCULAR: There is atherosclerotic vascular wall calcifications of aorta and iliac vessels. There is no aneurysm. PELVIC VISCERA: There are surgical clips in the scrotum. Prostate enlarged measuring 5 cm transverse. OSSEOUS STRUCTURES: Degenerative spondylosis of spine with vacuum disc phenomena endplate spurring and facet joint arthrosis at L4-L5. IMPRESSION: There is no acute abnormality of the abdomen or the pelvis.
[2018-01-16] MEDS ORDERED: DICYCLOMINE HCL10 M1 PO (17:21)
[2018-01-16 18:03] VITALS: BP 143/88
== END 2018-01-16 18:04 ==
LOC: ERH 14:36
PROVIDERS: Physician Assistant Medical
DX: R10.84 Generalized abdominal pain (principal); R19.7 Diarrhea, unspecified
CPT/HCPCS: 74176

== ENCOUNTER 2018-01-28 09:37 | Emergency (ER) | payer OTHER, MEDICARE ==
[~2018-01-28] VITALS: Ht 172.7 cm; Wt 66.2 kg
[~2018-01-28 09:37] MED LIST changes: +DICYCLOMINE HCL10 M1 PO
[2018-01-28 09:57] VITALS: BP 127/78
[2018-01-28] MEDS ORDERED: NYSTATIN100000 UNI PO (10:55)
--- NOTE | 2018-01-28 10:56 | ED THROAT/DENTAL COMPLAINT ---
History of Present Illness General Chief Complaint: General Adult Stated Complaint: NUMB JAW, NECK AND HEAD PAIN, MED REACTION Source: patient Exam Limitations: no limitations Vital Signs & Intake/Output Vital Signs & Intake/Output Vital Signs Date Time Temp Pulse Resp B/P B/P Pulse O2 O2 Flow FiO2 Mean Ox Delivery Rate 01/28 1042 97 Room Air 01/28 0957 97.0 86 20 127/78 96 Room Air Allergies Coded Allergies: Iodinated Contrast- Oral and IV Dye (IODINATED CONTRAST MEDIA - IV DYE) (MAKES ME SICK FOR DAYS PER PT 10/31/17) hydromorphone (Mild, DIZZINESS AND ITCHINESS 10/31/17) Reconcile Medications Acetaminophen (Tylenol Extra Strength) 500 MG TABLET 1-2 TAB PO DAILY PAIN ( Reported) Albuterol Sulfate (Ventolin Hfa) 90 MCG HFA.AER.AD 2 PUF INH Q4-6 PRN PRN SHORTNESS OF BREATH (Reported) Budesonide/Formoterol Fumarate (Symbicort 160-4.5 Mcg Inhaler) 160 MCG-4.5 MCG/ ACTUATION HFA.AER.AD 2 PUF INH BID SHORTNESS OF BREATH (Reported) Clonazepam 0.5 MG TABLET 2 TAB PO DAILY ANXIETY (Reported) Dicyclomine HCl 10 MG CAPSULE 1-2 CAP PO TID abd spasms Hydrochlorothiazide 25 MG TABLET 1 TAB PO DAILY WATER RETENTION (Reported) Lisinopril 40 MG TABLET 1 TAB PO DAILY BP (Reported) Montelukast Sodium 10 MG TABLET 1 TAB PO DAILY ALLERGIES/COPD (Reported) Nystatin 100,000 UNIT/ML ORAL.SUSP 5 ML PO 4 TIMES/DAY THRUSH Oxycodone HCl/Acetaminophen (Oxycodone-Acetaminophen 10-325) 10 MG-325 MG TABLET 1 TAB PO 4XDP PRN PAIN (Reported) Ranitidine HCl 300 MG TABLET 1 TAB PO QPM GI (Reported) Tamsulosin HCl 0.4 MG CAP.ER.24H 1 CAP PO DAILY PROSTATE (Reported) Triage Note: PT TO ED C/O NECK AND HEAD PAIN. ALSO C/O LIPS FEELING NUMB. Triage Nurses Notes Reviewed? yes Onset: Abrupt Duration: day(s): (1), constant Timing: recent history Injury Environment: home HPI: 73-year-old male comes into the emergency room with complaints of tingling around his mouth and tongue and his gums feel strange. Symptoms been going on since chest today. Denies any fever chills cough chest pain shortness of breath. He reports some soreness in his neck. Denies any other associated symptoms. Comes in for further evaluation. (Rico Rosa) Past History Travel History Traveled to [place] past 21 day No Medical History Any Pertinent Medical History? 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 No (Rico Rosa) Review of Systems Review of Systems Constitutional: Reports: no symptoms. EENTM: Reports: see HPI. Respiratory: Reports: no symptoms. Cardiovascular: Reports: no symptoms. GI: Reports: no symptoms. Genitourinary: Reports: no symptoms. Musculoskeletal: Reports: no symptoms. Skin: Reports: no symptoms. Neurological/Psychological: Reports: no symptoms. Hematologic/Endocrine: Reports: no symptoms. Immunologic/Allergic: Reports: no symptoms. All Other Systems: Reviewed and Negative (Rico Rosa) Physical Exam Physical Exam General Appearance: well developed/nourished, no apparent distress, alert Head: atraumatic Eyes: Bilateral: normal appearance. Nose: normal inspection Mouth/Throat: white/BROWNISH plaques on tongue, pharynx mildy red Neck: normal inspection, supple, full range of motion Cardiovascular/Respiratory: no respiratory distress Back: normal range of motion Neurologic/Psych: awake, alert, oriented x 3 Skin: intact, normal color Core Measures ACS in differential dx? No Sepsis Present: No Sepsis Focused Exam Completed? No (Rico Rosa) Progress Differential Diagnosis: Ludwigs angina, odontogenic abscess, stomatitis/ gingivitis, THRUSH Plan of Care: 01/28/2018 12:08:37 PM Most consistent with thrush. Also patient had been sucking on a cough drip right prior to arrival. Follow-up with PCP. Return if any concerns worsening symptoms. (Rico Rosa) Departure Departure Disposition: HOME OR SELF CARE Condition: Stable Clinical Impression Primary Impression: Oral thrush Referrals: Kris Ponce MD (PCP/Family) Additional Instructions: Use nystatin swish and swallow as prescribed. Follow-up with your primary care doctor. Return if any other concerns worsening symptoms. Please go over all results of today's visit with your primary care doctor. Contact your primary care doctor to let them know you were here in the emergency room. There may be nonspecific findings which may not be related to your visit today here in the emergency room but may require further evaluation and chronic monitoring by your primary care doctor. If you had a laceration today the chance of foreign body always remains. You should follow-up with your primary care doctor for recheck in 3-5 days for a wound check. If you had an x-ray done there is a chance that a fracture could have been missed on initial read and you should follow-up with your primary care doctor for repeat x-rays if symptoms persist. If your blood pressure was elevated here in the emergency room please have rechecked by [facility] primary care doctor within the next 48. If you were prescribed a narcotic here in the emergency room or any type of controlled substances you're not allowed to drive while taking this medication or operate any type of heavy machinery. Narcotics can make you feel lightheaded dizziness nausea and can cause constipation. You may need to berry picker machine operator a stool softener. Thank you for choosing [facility] emergency room. Please return to the emergency room immediately if you have any other concerns worsening of symptoms. Departure Forms: Customer Survey General Discharge Information Prescriptions: Current Visit Scripts Nystatin 5 ML PO 4 TIMES/DAY #200 ML (Rico Rosa) PA/CINDER PIT CRANE OPERATOR Co-Sign Statement Statement: ED Attending supervision documentation- [X] I saw and evaluated the patient. I have also reviewed all the pertinent lab results and diagnostic results. I agree with the findings and the plan of care as documented in the PA's/CINDER PIT CRANE OPERATOR's documentation. [X] I have reviewed the ED Record and agree with the PA's/CINDER PIT CRANE OPERATOR's documentation. [] Additions or exceptions (if any) to the PAs/CINDER PIT CRANE OPERATOR's note and plan are summarized below: [] (Diana CHAPPELL,Rhett Rojo)
[2018-02-02] MEDS ORDERED: AMLODIPINE BES2.5 M1 PO (08:01)
== END 2018-01-28 11:34 ==
LOC: ERH 09:37
DX: B37.0 Candidal stomatitis (principal)